=== PATIENT | female | born 1940 | race Caucasian/White ===

== ENCOUNTER 2023-05-21 18:41 | Observation (INO) | payer OTHER, SELFPAY ==
[2023-05-21] VITALS (7 sets, daily range): BP systolic 136–161; BP diastolic 67–88; PULSE 61–68; BMI 38.3; BMI 37.0
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
[2023-05-21 14:57] LABS: % Basophils 0.5 % (0-2); % Eosinophils 2.6 % (0-6); % Immature Granulocytes 0.4 % (0-0.5); % Lymphocytes 16.3 % (20.5-51.1); % Monocytes 5.4 % (1.7-9.3); % Neutrophils 74.8 % (42.2-75.2); Absolute Eosinophils 0.2 10^3/uL (0-0.7); Absolute Lymphocytes 1.3 10^3/uL (1.2-3.4); Absolute Monocytes 0.4 10^3/uL (0.1-0.6); Absolute Neutrophils 5.8 10^3/uL (1.4-6.5); Hematocrit 37.8 % (37.0-47.0); Hemoglobin 12.7 g/dL (12.0-16.0); Mean Corp Hgb Conc. 33.6 g/dL (33.0-37.0); Mean Corpuscular Hgb 28.7 pg (27.0-31.0); Mean Corpuscular Volume 85.3 fL (81.0-99.0); Mean Platelet Volume 9.3 fL (7.4-10.4); Nucleated Red Blood Cells % 0 %; Platelet Count 258 10^3/uL (130-400); Red Blood Cell Count 4.43 10^6/uL (4.20-5.40); Red Cell Dist. Width 13.6 % (11.5-14.5); White Blood Cell Count 7.7 10^3/uL (4.8-10.8)
[2023-05-21] MEDS: NSS 1000 IV (16:09)
[2023-05-21 16:10] LABS: ALT (SGPT) 21 U/L (0-35); AST (SGOT) 21 U/L (14-36); Albumin 4.3 g/dl (3.5-5.0); Alkaline Phosphatase 99 U/L (38-126); Blood Urea Nitrogen 15 mg/dl (7-17); Calcium 9.5 mg/dl (8.4-10.2); Carbon Dioxide 28 mmol/L (22-30); Chloride 102 mmol/L (98-107); Estimated Creatinine Clearance 70 ml/min; Glucose 109 mg/dl (70-99); Potassium 4.4 mmol/L (3.5-5.1); Sodium 139 mmol/L (135-145); Total Bilirubin 0.5 mg/dl (0.2-1.3); Total Protein 7.1 g/dl (6.3-8.2); eGFR > 60.00
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
[2023-05-21 18:40] LABS: COVID-19 Antigen Negative (Negative)
[2023-05-21] MEDS: ZOVIRAX 200 MG PO (22:26)
[2023-05-21] MEDS: LAMICTAL 300 MG PO (22:26)
[2023-05-21] MEDS: NEURONTIN 100 MG PO (22:28)
--- NOTE | 2023-05-21 22:30 | PTCARENOTE ---
Received patient from ED via stretcher. Patient stood and pivoted from stretcher to bed with assistance. AAOx3, no current complaints of pain. Oriented patient to room and placed call meléndez within reach.
[2023-05-22] VITALS (9 sets, daily range): BP systolic 130–184; BP diastolic 67–108; PULSE 72–87; O2SAT 94
[2023-05-22 07:31] LABS: % Basophils 0.4 % (0-2); % Eosinophils 4.9 % (0-6); % Immature Granulocytes 0.4 % (0-0.5); % Lymphocytes 23.6 % (20.5-51.1); % Monocytes 6.2 % (1.7-9.3); % Neutrophils 64.5 % (42.2-75.2); Absolute Eosinophils 0.4 10^3/uL (0-0.7); Absolute Lymphocytes 1.9 10^3/uL (1.2-3.4); Absolute Monocytes 0.5 10^3/uL (0.1-0.6); Absolute Neutrophils 5.1 10^3/uL (1.4-6.5); Hematocrit 39.1 % (37.0-47.0); Hemoglobin 13.2 g/dL (12.0-16.0); Mean Corp Hgb Conc. 33.8 g/dL (33.0-37.0); Mean Corpuscular Hgb 28.6 pg (27.0-31.0); Mean Corpuscular Volume 84.6 fL (81.0-99.0); Mean Platelet Volume 9.5 fL (7.4-10.4); Nucleated Red Blood Cells % 0 %; Platelet Count 241 10^3/uL (130-400); Red Blood Cell Count 4.62 10^6/uL (4.20-5.40); Red Cell Dist. Width 13.6 % (11.5-14.5); White Blood Cell Count 7.9 10^3/uL (4.8-10.8)
[2023-05-22 07:43] LABS: Blood Urea Nitrogen 12 mg/dl (7-17); Calcium 9.4 mg/dl (8.4-10.2); Carbon Dioxide 28 mmol/L (22-30); Chloride 107 mmol/L (98-107); Estimated Creatinine Clearance 81 ml/min; Glucose 94 mg/dl (70-99); Potassium 3.9 mmol/L (3.5-5.1); Sodium 140 mmol/L (135-145); eGFR > 60.00
[2023-05-22] MEDS: ZOVIRAX 200 MG PO ×2 (09:07→20:38)
[2023-05-22] MEDS: NEURONTIN 100 MG PO (09:08)
[2023-05-22] MEDS: TOPROL XL 50 MG PO (09:08)
[2023-05-22] MEDS: ABILIFY 10 MG PO (09:08)
[2023-05-22] MEDS: CELEBREX 100 MG PO (09:08)
[2023-05-22] MEDS: LAMICTAL 300 MG PO ×2 (09:08→20:38)
[2023-05-22] MEDS: PROTONIX 40 MG PO (09:08)
[2023-05-22] MEDS: THERAGRAN 1 TABLET PO (09:09)
[2023-05-22] MEDS: CYMBALTA DELAYED RELEASE 90 MG PO (09:09)
[2023-05-22] MEDS: CARDIZEM CD 240 MG PO (09:09)
[2023-05-22] MEDS: FLUSH (NSS) 1 FLUSH IV (09:09)
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
--- NOTE | 2023-05-22 15:09 | CM ---
Alert awake oriented patient who lives alone at [facility]. She is independent in all activities of daily living.She has ascooter rollator walker and CPAP with [facility]. Will need PT OT eval for dc plan.MARIN letter given explained
. Copy on chart and copy given to patient . she declined to sign [place].
No SNF/Has VN hx
Pharmacy [facility]
PCP Dr Alexander
PLAN will need PT OT for dc planning
[2023-05-22 18:20] LABS: Ferritin 26.5 ng/ml (11.1-264.0)
[2023-05-22 18:51] LABS: Folate > 20.0 ng/ml (2.76-20); Vitamin B12 560 pg/ml (239-931)
--- NOTE | 2023-05-22 22:22 | EEG.RPT ---
Electroencephalogram Report
Recording
Date of EE05/22/23
Type of EEG: Routine
Length of EEG recordin mins
Done with Video Recording: Yes
Patient Status: Inpatient
Recording Conditions: Awake and Drowsy
Hyperventilation Performed: No
Photic Stimulation Performed: Yes
Report
METHODS
A 21 channel digitized electroencephalogram was performed at [facility]. The 10/20 international system of electrode placement was used. In addition to EEG, the patient was monitored for EKG. The duration of the recording was 30 minutes.
BACKGROUND
During the awake state, with the eyes closed, the background consisted of a normal amplitude, 9 Hertz posterior reactive rhythm that attenuated appropriately with eye opening. Beta activity was distributed diffusely with an anterior predominance.
There was a normal anterior-posterior voltage gradient. With eye opening the background activity changed to a low voltage mixture of alpha, beta, and occasional theta range frequencies. There were no significant asymmetries of background activity
noted.
PHOTIC STIMULATION
Photic stimulation using a step-davenport increase in photic frequency varying from 1-31 Hertz resulted in no driving responses but no appearance of abnormal activity.
ABNORMAL EEG ACTIVITY
None
CLINICAL EVENTS
None
INTERPRETATION AND CLINICAL CORRELATION
This EEG is normal during the awake and drowsy states as well as during the activation procedure of photic stimulation. No seizures were noted during the recording. A normal EEG, in itself, does not rule out a diagnosis of epilepsy. If clinical
suspicion for seizure persists, a sleep-deprived and/or prolonged recording may be warranted.
[2023-05-23] VITALS (7 sets, daily range): BP systolic 128–190; BP diastolic 72–115; PULSE 95–96
[2023-05-23 07:01] LABS: Cortisol, Random 8.3 ug/dl; TSH Reflex To Free T4 1.92 uIU/ml (0.47-4.68)
[2023-05-23] MEDS: CARDIZEM CD 240 MG PO (08:50)
[2023-05-23] MEDS: PROTONIX 40 MG PO (08:53)
[2023-05-23] MEDS: LAMICTAL 300 MG PO ×2 (08:53→20:27)
[2023-05-23] MEDS: TOPROL XL 50 MG PO (08:54)
[2023-05-23] MEDS: CYMBALTA DELAYED RELEASE 90 MG PO (08:54)
[2023-05-23] MEDS: ABILIFY 10 MG PO (08:54)
[2023-05-23] MEDS: CELEBREX 100 MG PO (08:55)
[2023-05-23] MEDS: ZOVIRAX 200 MG PO ×2 (08:57→20:27)
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
--- NOTE | 2023-05-23 13:33 | W.DCSUMMARY ---
Discharge Summary
Discharge Data
Date of Admission: 05/21/23
Date of Discharge: 05/24/23
-
Pending Results: No
Hospital Course
83-year-old female with past history of memory impairment, chronic falls, seizure disorder, traumatic brain injury, normal pressure hydrocephalus, hypertension, bipolar disorder, hyperlipidemia, GERD, osteoarthritis, ADD, DAKOTA, vertigo, IBS,
recurrent herpes came to the hospital with ambulatory dysfunction with unwitnessed fall. Initially there was a concern of patient unintentionally overdosing her medication due to her poor vision however after evaluation patient did not overdose.
Patient was seen by neurology throughout hospitalization. EEG was negative for any seizure. Patient was initially orthostatic however later on orthostasis improved. Patient was started on teds. TSH and cortisol was normal. Patient was evaluated
by physical therapy who recommended SNF however patient continued to refuse assisted facility placement. Initial CT scan was also concerning for chronic subdural hematoma versus hygroma. Neurosurgery was consulted by ED who recommended no
further management. Patient mental status over time continue to improve and she was back to her baseline mental status prior to the discharge. Her Lamictal level which was checked by neurology came little high and so neurology recommended patient
to hold 1 dose of Lamictal prior to discharge. On discharge patient instructed to continue taking usual Lamictal and to check her Lamictal level outpatient next week. Once her symptoms improved, she was then discharged with instructions to
follow-up with all her physicians outpatient.
Discharge Plan
-
Patient Disposition: Home with Home Care
Discharge Diagnosis/Procedures: Orthostatic hypotension
Ambulatory dysfunction
Elevated Lamictal level
Diet: As tolerated
Activity: As tolerated
Driving Restrictions: Not until seen by your Dr
Bathing Restrictions: None
Blood Work: Check lamictal level next week with your primary care or neurology
Activity Restrictions/Additional Instructions:
Please follow-up with neurology outpatient
Referrals:
Malika Alexander MD [Family Provider] - in less than 1 week
Scatton,Vicki P., DO [Active] -
Additional Discharge Medication Instructions: restart lamictal at usual dosing starting 05/24/23 evening dose
Prescriptions:
Continued
lamotrigine 150 MG tablet
300 mg PO BID
diltiazem HCl 240 MG capsule,extended release 24hr
240 mg PO DAILY
omeprazole 20 MG capsule,delayed release(DR/EC)
20 mg PO DAILY
acyclovir 200 MG capsule
200 mg PO BID
aripiprazole 10 MG tablet
10 mg PO DAILY
duloxetine 30 MG capsule,delayed release(DR/EC)
90 mg PO DAILY
multivitamin Tablet
1 tab PO DAILY
metoprolol succinate 50 mg tablet extended release 24 hr
50 mg PO DAILY
meclizine 12.5 mg Tablet
12.5 mg PO Q8H PRN (Reason: dizziness)
celecoxib 100 mg capsule
100 mg PO DAILY
dextroamphetamine-amphetamine 15 mg capsule,extended release 24hr
30 mg PO DAILY
Patient Comments:
05/21/2023: last filled 05/03/23, 60 tabs for 30 days from [facility]
inulin 1.5 gram Tablet,Chewable
3 g PO DAILY
Hair, Skin and Nails (biotin)
2 tab PO DAILY
sennosides [senna] 8.6 MG tablet
8.6 mg PO DAILY PRN (Reason: constipation)
Discontinued
gabapentin 100 mg capsule
100 mg PO TID
Discharge Orders:
Discharge Patient (As Directed); Ordered 05/23/23
Ordered By: Shan Jane
Discharge Date and Time
Discharge Date/Time: 05/24/23 11:31
--- NOTE | 2023-05-23 15:47 | CM ---
CM following re: d/c planning
Chart reviewed
Pt is medically stable for d/c and will return to her [place] apartment at [facility]
PT/OT continue to recommend SNF and the patient has adamantly refused
Patient's son is in agreement for the patient to return to her apartment with VN
This senior grant writer left a voice mail message for the patient's son to inform of patient d/c and asked what time he'd be coming to the hospital to transport mom home
Awaiting a return call at this time
CM has arranged for VN through [facility] and they requested clinicals be faxed to [phone]
No additional d/c needs noted at this time
PLAN; d/c home with [facility]N
--- NOTE | 2023-05-23 17:04 | CM ---
CM following re: d/c planning
Chart reviewed
Pt is medically stable for d/c
Pt discharge held due to inability to coordinate a reasonable transport time
CM spoke with the patient's son Hilton who spoke to the patient earlier to inform he'd be unable to p/u his mom because he's out of town his other brother is also 2 plus hours away
Hilton informed his mother to call one of her friends to transport her home from the community & she refused
Pt is set up with [facility] as she's adamantly refusing SNF placement
CM to arrange w/c van transport in the a.m.
PLAN; d/c home with VN provided by [facility]
--- NOTE | 2023-05-23 17:21 | PTCARENOTE ---
Received patient this am AAOx3. Pt forgetful intermittently. Pt refused Pneumococcal Vaccine, pt states she has already had vaccine. Pt OOB to chair tolerated well. Tolerated diet well. Pt for discharge today. Transportation to home was not able
to be coordinated at a reasonable time via [facility]. Pt's son's both out of town an are unable to pick pt up. Case management made Dr. Jane aware.
[2023-05-24 02:41] LABS: Lamotrigine (Lamictal) 16.4 ug/mL (3.0-15.0)
--- NOTE | 2023-05-24 02:52 | PTCARENOTE ---
Lamictal level back 16.4. House ENRICHMENT ASSISTANT aware.
--- NOTE | 2023-05-24 03:10 | W.PN.UPDATE ---
Update Note
Progress Note Update
Lamictal 16.4, placed Lamictal doses on hold.
[2023-05-24 03:36] VITALS: BP 154/82
[2023-05-24 05:14] VITALS: BP 142/92; BP 143/73; BP 149/93; PULSE 72; PULSE 88; PULSE 91
--- NOTE | 2023-05-24 07:55 | W.PN.NEURO.1 ---
Today's Communication / Plan
-
hold lamotrigine x 1 dose
lamotrigine levels repeated in 1 week
Neuro Assessment/Plan
Assessment
Abrupt onset of worsening gait in a patient with prior ventriculoperitoneal shunt, reported seizures, subdural hematoma and accidental polypharmacy self-reported by the patient yesterday
Continue to follow orthostatics
hold lamotrigine x 1 dose
lamotrigine levels repeated in 1 week
Discontinued gabapentin due to the risk of the patient experiencing a sense of dizziness and unsteadiness with the use of this medication routinely alternative medication may be pregabalin
No indication patient will require neurosurgical intervention
Rehabilitation evaluations
Likely patient will require additional oversight of medication administration
Plan
hold lamotrigine x 1 dose
lamotrigine levels repeated in 1 week
Subjective/Objective
Subjective Data
Date of Service: May 24, 2023
Objective Data
Vital Signs
Temp Pulse Resp BP Pulse Ox
36.7 C 72 18 154/82 95
05/24/23 03:36 05/24/23 03:36 05/24/23 03:36 05/24/23 03:36 05/24/23 03:36
Lab Results
05/22/23 06:59
05/22/23 06:59
Sodium 140 mmol/L (135-145) 05/22/23 06:59
Potassium 3.9 mmol/L (3.5-5.1) 05/22/23 06:59
BUN 12 mg/dl (7-17) 05/22/23 06:59
Glucose 94 mg/dl (70-99) 05/22/23 06:59
Calcium 9.4 mg/dl (8.4-10.2) 05/22/23 06:59
Vitamin B12 560 pg/ml (239-931) 05/22/23 06:59
Patient Allergies
No Known Allergies Allergy (Verified 04/09/22 10:10)
Past History
Past History
ED Past Medical History: Cancer, HTN, Seizures, Psychiatric and Other (SDH)
ED Past Surgical History: Appendectomy, Brain (VPS shunt), Gynecological, Orthopedic and Urological
Social History
Tobacco: Smoker
Alcohol: None
Drug: None
Living: with family
Employment: Retired
Family History
Family History: Hypertension
Medications
-
Medications:
Generic Name Dose Route Start Last Admin
Trade Name Freq PRN Reason Stop Dose Admin
Acetaminophen 650 mg 05/21/23 21:31
Acetaminophen 325 Mg Tablet PO 06/18/23 21:30
Q4HPRN PRN
mild pain/MUHAMMAD/temp> 100.4F
Acyclovir Sodium 200 mg 05/21/23 21:31 05/23/23 20:27
Acyclovir Sodium 200 Mg Capsule PO 05/31/23 21:30 200 mg
BID SIRI Administration
Aripiprazole 10 mg 05/22/23 08:00 05/23/23 08:54
Aripiprazole 10 Mg Tablet PO 06/19/23 07:59 10 mg
DAILY SIRI Administration
Celecoxib 100 mg 05/22/23 08:00 05/23/23 08:55
Celecoxib 100 Mg Capsule PO 06/19/23 07:59 100 mg
DAILY SIRI Administration
Diltiazem HCl 240 mg 05/22/23 08:00 05/23/23 08:50
Diltiazem 240 Mg Extended Release (24 H) Capsule PO 06/19/23 07:59 240 mg
DAILY SIRI Administration
Duloxetine HCl 90 mg 05/22/23 08:00 05/23/23 08:54
Duloxetine Delayed Release 30 Mg Capsule PO 06/19/23 07:59 90 mg
DAILY SIRI Administration
Lamotrigine 300 mg 05/21/23 22:00 05/23/23 20:27
Lamotrigine 100 Mg Tablet PO 06/18/23 21:59 300 mg
BID SIRI Administration
Meclizine HCl 12.5 mg 05/21/23 21:31
Meclizine 12.5 Mg Tablet PO 06/18/23 21:30
Q8HPRN PRN
dizziness
Metoprolol Succinate 50 mg 05/22/23 08:00 05/23/23 08:54
Metoprolol 50 Mg Extended Release Tablet PO 06/19/23 07:59 50 mg
DAILY SIRI Administration
Dextro/Amphetamine 0 mg 05/22/23 08:00
30 Mg Capsule Er Po PO 06/19/23 07:59
Daily DAILY SIRI
Pantoprazole Sodium 40 mg 05/22/23 08:00 05/23/23 08:53
Pantoprazole 40 Mg Delayed Release Tablet PO 06/19/23 07:59 40 mg
DAILY SIRI Administration
Sennosides 8.6 mg 05/21/23 21:31
Sennosides (Senokot) 8.6 Mg Tablet PO 06/18/23 21:30
DAILYPRN PRN
constipation
Sodium Chloride 0 flush 05/21/23 22:00 05/22/23 09:09
Sodium Chloride 0.9% (Flush) Syringe IV 06/18/23 21:59 1 flush
PER PROTOCOL SIRI Administration
[2023-05-24 08:00] VITALS: BP 145/89
[2023-05-24] MEDS: CARDIZEM CD 240 MG PO (09:58)
[2023-05-24] MEDS: CYMBALTA DELAYED RELEASE 90 MG PO (09:58)
[2023-05-24] MEDS: ABILIFY 10 MG PO (09:59)
[2023-05-24] MEDS: PROTONIX 40 MG PO (09:59)
[2023-05-24] MEDS: CELEBREX 100 MG PO (09:59)
[2023-05-24] MEDS: ZOVIRAX 200 MG PO (09:59)
[2023-05-24] MEDS: TOPROL XL 50 MG PO (10:00)
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
[2023-05-24 11:04] VITALS: BP 151/83
--- NOTE | 2023-05-24 17:48 | CM ---
patient refusiing snf.ready for dc home totab.i called transport at [facility] and they are able to pick her up at 11:15pm.explained medicare letter nbut patient refuses to sign.michelle mcgee dc yo [facility] with [facility].
== END 2023-05-24 11:31 | disposition home health service (06) ==
LOC: 4 EAST ACU 18:41
PROVIDERS: Clinical Nurse Specialist Family Health; ADMITTING PHYSICIAN Internal Medicine; EMERGENCY PHYSICIAN Emergency Medicine; FAMILY PHYSICIAN Internal Medicine Geriatric Medicine; OTHER PHYSICIAN Psychiatry & Neurology Neurology
DX: R41.3 Other amnesia (principal); R42 Dizziness and giddiness; R47.81 Slurred speech; E78.5 Hyperlipidemia, unspecified; I10 Essential (primary) hypertension; W19.XXXA Unspecified fall, initial encounter; Y93.9 Activity, unspecified; Y92.099 Unspecified place in other non-institutional residence as the place of occurrence of the external cause; K21.9 Gastro-esophageal reflux disease without esophagitis; G93.89 Other specified disorders of brain; R41.0 Disorientation, unspecified; G40.909 Epilepsy, unspecified, not intractable, without status epilepticus; G91.2 (Idiopathic) normal pressure hydrocephalus; F31.9 Bipolar disorder, unspecified; F41.9 Anxiety disorder, unspecified; G47.33 Obstructive sleep apnea (adult) (pediatric); F17.200 Nicotine dependence, unspecified, uncomplicated; R29.6 Repeated falls; M19.011 Primary osteoarthritis, right shoulder; G89.29 Other chronic pain; M75.41 Impingement syndrome of right shoulder; R01.1 Cardiac murmur, unspecified; K58.9 Irritable bowel syndrome, unspecified; I44.0 Atrioventricular block, first degree; B00.9 Herpesviral infection, unspecified; H53.461 Homonymous bilateral field defects, right side; E66.09 Other obesity due to excess calories; Z91.199 Patient's noncompliance with other medical treatment and regimen due to unspecified reason; Z87.820 Personal history of traumatic brain injury; Z82.49 Family history of ischemic heart disease and other diseases of the circulatory system; Z90.49 Acquired absence of other specified parts of digestive tract; Z98.2 Presence of cerebrospinal fluid drainage device; Z11.52 Encounter for screening for COVID-19; Z80.3 Family history of malignant neoplasm of breast; Z79.624 Long term (current) use of inhibitors of nucleotide synthesis; Z79.1 Long term (current) use of non-steroidal anti-inflammatories (NSAID); Z68.37 Body mass index [BMI] 37.0-37.9, adult; Z66 Do not resuscitate
CPT/HCPCS: 70450; 80048; 80053; 80175; 82533; 82607; 82728; 82746; 84443; 85025; 87070; 87811; 93005; 94660; 95816; 96360; 97162; 97167; 97530; 99285; G0378

== ENCOUNTER 2023-10-21 10:05 | Emergency (ER) | payer OTHER, SELFPAY ==
[2023-10-21 10:23] VITALS: BP 138/73
--- NOTE | 2023-10-21 11:31 | ED.GENMED ---
History of Present Illness
<Carlota Mao MD, Resident - Last Filed: 10/21/23 13:43>
General
Chief Complaint: Musculo-Skeletal Complaint
Time Seen by Provider: 10/21/23 10:31
History of Present Illness
History of Present Illness:
83 year ol female presented to ER with right knee, ankle and foot pain. She reported that she sprained her ankle yesterday and hit her knee to ottoman. She denied having head trauma at that time. She reported minimal pain on her left knee. On
examination her right ankle and foot was found swollen. Her foot was erythematous. The patient reports balance chronic balance problems and denies any increasing with it. The patient was seen in May 2023 due her gait problems by neurology.
Past History
ED Past Medical History: Cancer, HTN, Seizures, Psychiatric and Other (SDH)
ED Past Surgical History: Appendectomy, Brain (VPS shunt), Gynecological, Orthopedic and Urological
Social History
Tobacco: Smoker
Alcohol: None
Drug: None
Living: with family
Employment: Retired
Family History
Family History: Hypertension
If applicable-neuro sx onset
Date of onset of symptoms: 10/21/23
Past History
<Carlota Mao MD, Resident - Last Filed: 10/21/23 13:43>
Past History
ED Past Medical History: Cancer, HTN, Seizures, Psychiatric and Other (SDH)
ED Past Surgical History: Appendectomy, Brain (VPS shunt), Gynecological, Orthopedic and Urological
Social History
Tobacco: Smoker
Alcohol: None
Drug: None
Living: with family
Employment: Retired
Family History
Family History: Hypertension
Phy Exam
<Carlota Mao MD, Resident - Last Filed: 10/21/23 13:43>
General Physical Exam
General Presentation: no apparent distress
General age: appears stated age
General Skin: warm
General Mental: alert
General Hydration: appears well hydrated
Pulmonary Exam
Pulmonary Exam: no respiratory distress
Neurological Exam
Neurological Exam: alert, oriented x3 and no motor deficits
Musculoskeletal Exam
Musculoskeletal Exam: other (edema on he right ankle and foot. Dorsalis pedis was palpable. ROM of right ankle was limited due pain. )
Course
<Carlota Mao MD, Resident - Last Filed: 10/21/23 13:43>
Orders/Labs/Results
Orders:
Orders
10/21/23 10:27
Ankle, Right 3 view CR [CR Ankle - Right Min 3 Views *] Urgent
Comment:
Reason For Exam: fall, pain
Knee, Left 4 or More Views [CR Knee - Left 4 Or More View*] Urgent
Comment:
Reason For Exam: fall, pain
10/21/23 11:44
Ketorolac [Toradol] 15 mg .ROUTE .STK-MED ONE
10/21/23 12:01
boot [Ortho Boot Right- Treatment] ONCE
Short or tall?: Short
10/21/23 12:19
Case Management Consult ONCE
Case Management Consult: Discharge Planning
10/21/23 12:20
Ketorolac [Toradol] 15 mg IM NOW STA
Vital Signs
Initial and Last Documented VS:
Initial Vital Signs
Temp Pulse Resp BP Pulse Ox
99 F 77 18 138/73 93
10/21/23 10:23 10/21/23 10:23 10/21/23 10:23 10/21/23 10:23 10/21/23 10:23
Last Documented Vital Signs
Temp Pulse Resp BP Pulse Ox
99 F 72 18 138/73 96
10/21/23 10:23 10/21/23 12:00 10/21/23 12:00 10/21/23 10:23 10/21/23 12:00
<Ana Cowan DO - Last Filed: 10/21/23 12:50>
Orders/Labs/Results
Orders:
Orders
10/21/23 10:27
Ankle, Right 3 view CR [CR Ankle - Right Min 3 Views *] Urgent
Comment:
Reason For Exam: fall, pain
Knee, Left 4 or More Views [CR Knee - Left 4 Or More View*] Urgent
Comment:
Reason For Exam: fall, pain
10/21/23 11:44
Ketorolac [Toradol] 15 mg .ROUTE .STK-MED ONE
10/21/23 12:01
boot [Ortho Boot Right- Treatment] ONCE
Short or tall?: Short
10/21/23 12:19
Case Management Consult ONCE
Case Management Consult: Discharge Planning
10/21/23 12:20
Ketorolac [Toradol] 15 mg IM NOW STA
Vital Signs
Initial and Last Documented VS:
Initial Vital Signs
Temp Pulse Resp BP Pulse Ox
99 F 77 18 138/73 93
10/21/23 10:23 10/21/23 10:23 10/21/23 10:23 10/21/23 10:23 10/21/23 10:23
Last Documented Vital Signs
Temp Pulse Resp BP Pulse Ox
99 F 72 18 138/73 96
10/21/23 10:23 10/21/23 12:00 10/21/23 12:00 10/21/23 10:23 10/21/23 12:00
<Carlota Mao MD, Resident - Last Filed: 10/21/23 13:43>
*Critical Care Note
Total Time (30-74mins, 75-104mins- exclusive of procedures): Not Applicable
<Carlota Mao MD, Resident - Last Filed: 10/21/23 13:43>
Comment
Comment:
Musculoskeletal injury, right foot/ankle trauma? X-rays of the right knee and ankle and foot reviewed no fracture /acute problem. The patient was applied ice on the affected area ans was prescribed a right foot boot to improve her ankle
stability/pain.
ED Attending Note
<Carlota Moa MD, Resident - Last Filed: 10/21/23 13:43>
-
Portions of this chart may have been created with voice recognition software.� Occasional wrong word or��sound alike� substitutions may have occurred due to the inherent limitations of voice recognition software.
<Ana Cowan DO - Last Filed: 10/21/23 12:50>
ED Attending Note
Patient seen and examined by attending physician: Yes
I performed the substantive portion of visit, reviewed & personally made and approve the management plan that is documented in note by myself or CITLALY.: Yes
I performed a history and physical exam of patient and discussed management with resident, I reviewed resident's note and agree with documented findings and plan of care.: Yes
ED Attending Note:
83-year-old female presenting to the emergency department with right ankle and left knee pain. Patient arrives from her facility, notes she has chronic balance issues and she struck her left knee and twisted her right ankle on an ottoman yesterday.
She has since had difficulty bearing weight secondary to pain. Denies numbness or tingling to the extremities. Denies fall or head injury. Denies additional acute medical complaints. Vital signs within normal limits.
On exam, patient well-appearing, no acute distress. Patient with swelling to the right ankle at the lateral malleoli with generalized tenderness to the ankle joint. Range of motion grossly intact. No erythema or warmth. Distal sensation and
pulses intact. On examination of the left knee, no obvious swelling or deformity. Range of motion intact. No erythema or warmth. No neurovascular compromise to the extremities. No acute signs of infection. Suspect a musculoskeletal injury.
Plan for x-ray imaging.
12:30 - Patient's x-ray of the ankle without acute fracture or malalignment. No abnormality to the left knee. Patient placed in a boot. Will consult with case management for referral for physical therapy. Otherwise feel stable for discharge with
continued outpatient supportive therapy.
Discharge Plan
Departure
Patient Disposition: [facility]
Date of Disposition: 10/21/23
Time of Disposition: 13:05
Discharge Problem:
musculosceletal injury
Prescriptions:
New
celecoxib 100 mg capsule
100 mg PO ONCE Qty: 14 0RF
No Action
lamotrigine 150 MG tablet
300 mg PO BID
diltiazem HCl 240 MG capsule,extended release 24hr
240 mg PO DAILY
omeprazole 20 MG capsule,delayed release(DR/EC)
20 mg PO DAILY
acyclovir 200 MG capsule
200 mg PO BID
aripiprazole 10 MG tablet
10 mg PO DAILY
duloxetine 30 MG capsule,delayed release(DR/EC)
90 mg PO DAILY
multivitamin Tablet
1 tab PO DAILY
metoprolol succinate 50 mg tablet extended release 24 hr
50 mg PO DAILY
meclizine 12.5 mg Tablet
12.5 mg PO Q8H PRN (Reason: dizziness)
celecoxib 100 mg capsule
100 mg PO DAILY
dextroamphetamine-amphetamine 15 mg capsule,extended release 24hr
30 mg PO DAILY
Patient Comments:
05/21/2023: last filled 05/03/23, 60 tabs for 30 days from [facility]
inulin 1.5 gram Tablet,Chewable
3 g PO DAILY
Hair, Skin and Nails (biotin)
2 tab PO DAILY
sennosides [senna] 8.6 MG tablet
8.6 mg PO DAILY PRN (Reason: constipation)
Referrals:
Malika Alexander MD [Family Provider] -
Activity Restrictions/Additional Instructions:
You were seen in the emergency department for right knee and ankle injury
You are suspected to muscular an ligamental injury. X rays did not review any fracture. Your prescription for celecoxib was refilled. Please follow up closely with your primary care physician. Please apply ice pack every 3-4 hours for 10-15 minutes
on swollen areas.
Return to the emergency department for any worsening symptoms or any development of chest pain, difficulty breathing, abdominal pain, numbness on your extremities, fever over 100.4 or any additional symptoms that are concerning to you.
Thanks you for choosing [facility]
Interventions
Interventions:
*Risk Screen - Suicide Last Done: 10/21/23 10:27
*General Assessment Last Done: 10/21/23 10:23
*Neglect/Abuse Screening Last Done: 10/21/23 10:23
ED- Fall Risk Assessment Last Done: 10/21/23 13:32
*ED COVID-19 Vaccine History Last Done: 10/21/23 13:32
*Nursing Disposition Last Done: 10/21/23 13:32
ED-Musculoskeletal Assessment Last Done: 10/21/23 11:06
Discharge Date and Time
Discharge Date/Time: 10/21/23 13:33
Print Language: INDONESIAN
[2023-10-21] MEDS: TORADOL 15 MG IM (12:25)
--- NOTE | 2023-10-21 15:37 | CM ---
Patient from [facility] with Dx right knee and ankle injury.
Per Carlota Mao notes: The patient was applied ice on the affected area and was prescribed a right foot boot to improve her ankle stability/pain.
Notified by ED nurse Renate that patient was already discharged to home today with script from [facility] for PT, and she transported home via [facility].
Spoke with patient who resides alone in an apartment at [facility].
The patient has been independent in ADLs and ambulation without using any assistive devices.
She states she tripped and fell over her ottoman at home, and denies any other falls this year.
DME - states she only has a RW
CM notes 05/22/23: She has a scooter rollator walker and CPAP with [employer].
VN - prior [facility]
SNF - none
PCP - Malika Alexander
Pharmacy - [facility]
Patient declined to allow CM to contact her son Hilton.
Patient agrees to [facility] for SN & PT and is aware CM will notify [facility] for her. She states she wants PT to improve her balance.
Spoke with [facility] (ph [phone]); they are able to accept the referral.
Plan home today with [facility].
== END 2023-10-21 13:33 ==
LOC: EMR 10:05
PROVIDERS: EMERGENCY PHYSICIAN Student in an Organized Health Care Education/Training Program; FAMILY PHYSICIAN Internal Medicine Geriatric Medicine
DX: M25.562 Pain in left knee (principal); S93.401A Sprain of unspecified ligament of right ankle, initial encounter; M25.571 Pain in right ankle and joints of right foot; M25.471 Effusion, right ankle; W18.09XA Striking against other object with subsequent fall, initial encounter; I10 Essential (primary) hypertension; R56.9 Unspecified convulsions; R26.89 Other abnormalities of gait and mobility; F17.200 Nicotine dependence, unspecified, uncomplicated; Z98.2 Presence of cerebrospinal fluid drainage device; Z85.9 Personal history of malignant neoplasm, unspecified
CPT/HCPCS: 99283; 29515; 73564; 73610

== ENCOUNTER 2024-02-10 20:35 | Emergency (ER) | payer OTHER, SELFPAY ==
[2024-02-10 20:36] VITALS: BP 136/83
--- NOTE | 2024-02-10 20:36 | ED.GENMED ---
ED Provider Triage
<Abbe Kimble PA-C - Last Filed: 02/10/24 20:38>
-
Patient seen by provider in Triage?: Seen in Triage
Attestation: A medical screening examination has been initiated by a qualified medical provider. Based on the assessment performed at this time, it has been determined that an emergent medical condition may exist and the patient has been informed
that further medical evaluation and possible additional diagnostic testing may be needed.
HPI: 83-year-old female presenting to the ER for evaluation of nausea vomiting and diarrhea for the last few days. No recent travel or recent antibiotics. Attempted Imodium with no relief. Denies any fevers. Hemodynamically stable in no acute
distress. Labs ordered.
GENERAL: Alert , in no apparent distress
EYE: No visual abnormalities.
NECK: Trachea midline
ENT: No visible abnormalities.
LUNGS: No acute respiratory distress
NEUROLOGICAL: Alert and oriented
SKIN: Skin intact. No visible changes.
MUSCULOSKELETAL: Moving extremities normally
PSYCH: Normal and appropriate interaction.
This is a medical evaluation conducted in person to initiate diagnostic evaluation and provide initial therapeutics. Please see further documentation by the treating clinician.
History of Present Illness
<Abbe Kimble PA-C - Last Filed: 02/10/24 20:38>
General
Chief Complaint: Abdominal Pain
Time Seen by Provider: 02/10/24 23:16
<Ben Schaefer DO - Last Filed: 02/11/24 02:39>
General
Source: patient
Exam Limitations: none
History of Present Illness
History of Present Illness:
See MDM
Past History
<Abbe Kimble PA-C - Last Filed: 02/10/24 20:38>
Past History
ED Past Medical History: Cancer, HTN, Seizures, Psychiatric and Other (SDH)
ED Past Surgical History: Appendectomy, Brain (VPS shunt), Gynecological, Orthopedic and Urological
Social History
Tobacco: Smoker
Alcohol: None
Drug: None
Living: with family
Employment: Retired
Family History
Family History: Hypertension
Phy Exam
<Ben Schaefer DO - Last Filed: 02/11/24 02:39>
Physical Exam
Physical Exam:
See MDM
Course
<Abbe Kimble PA-C - Last Filed: 02/10/24 20:38>
Orders/Labs/Results
Orders:
Orders
02/10/24 20:44
Complete Blood Count/With Diff Urgent
Comprehensive Metabolic Panel Urgent
Lipase Urgent
02/10/24 23:20
0.9% Sodium Chloride 1000 ml [Nss] 1,000 ml IV BOLUS
02/10/24 23:22
Electrocardiogram (*1) Urgent
Reason for Study: Abdominal Pain
EKG- Treatment ONCE
02/11/24 00:15
CT Abd/pelvis W Iv Cont Urgent
Reason For Exam: N/V/D and abd pain
02/11/24 02:30
Amoxicillin 875 mg/Clav 125 mg [Augmentin 875 mg/125 mg] 1 tablet PO NOW STA
Abnormal Lab Results
02/10/24
20:44
Carbon Dioxide 21 L mmol/L
(22-30)
BUN 28 H mg/dl
(7-17)
Creatinine 1.1 H mg/dL
(0.6-1.0)
Glucose 107 H mg/dl
(70-99)
02/10/24 20:44
02/10/24 20:44
Vital Signs
Initial and Last Documented VS:
Initial Vital Signs
Temp Pulse Resp BP Pulse Ox
98.2 F 102 20 136/83 97
02/10/24 20:36 02/10/24 20:36 02/10/24 20:36 02/10/24 20:36 02/10/24 20:36
Last Documented Vital Signs
Temp Pulse Resp BP Pulse Ox
98.2 F 93 34 140/71 100
02/10/24 20:36 02/11/24 02:27 02/11/24 02:27 02/11/24 02:00 02/11/24 01:45
<Ben Schaefer, DO - Last Filed: 02/11/24 02:39>
Orders/Labs/Results
Orders:
Orders
02/10/24 20:44
Complete Blood Count/With Diff Urgent
Comprehensive Metabolic Panel Urgent
Lipase Urgent
02/10/24 23:20
0.9% Sodium Chloride 1000 ml [Nss] 1,000 ml IV BOLUS
02/10/24 23:22
Electrocardiogram (*1) Urgent
Reason for Study: Abdominal Pain
EKG- Treatment ONCE
02/11/24 00:15
CT Abd/pelvis W Iv Cont Urgent
Reason For Exam: N/V/D and abd pain
02/11/24 02:30
Amoxicillin 875 mg/Clav 125 mg [Augmentin 875 mg/125 mg] 1 tablet PO NOW STA
Abnormal Lab Results
02/10/24
20:44
Carbon Dioxide 21 L mmol/L
(22-30)
BUN 28 H mg/dl
(7-17)
Creatinine 1.1 H mg/dL
(0.6-1.0)
Glucose 107 H mg/dl
(70-99)
02/10/24 20:44
02/10/24 20:44
Vital Signs
Initial and Last Documented VS:
Initial Vital Signs
Temp Pulse Resp BP Pulse Ox
98.2 F 102 20 136/83 97
02/10/24 20:36 02/10/24 20:36 02/10/24 20:36 02/10/24 20:36 02/10/24 20:36
Last Documented Vital Signs
Temp Pulse Resp BP Pulse Ox
98.2 F 93 34 140/71 100
02/10/24 20:36 02/11/24 02:27 02/11/24 02:27 02/11/24 02:00 02/11/24 01:45
<Ben Schaefer, DO - Last Filed: 02/11/24 02:39>
MDM/Problems Addressed
Differential Diagnosis Includes:
HPI and MDM Narrative:
83-year-old female presenting for evaluation of several days of diarrhea. This was preceded by nausea and vomiting which has since improved. This is associated with generalized abdominal pain and bloating. She does come from a nursing facility
but is not sure about sick contacts. Patient is afebrile. She complains of mild dizziness. She is clinically dehydrated. Will give IV fluids and obtain CT. She denies chest pain or shortness of breath
Physical exam
General: Well appearing and non-toxic
HEENT: protecting airway. Mildly dry mucous membrane
Neck: appears supple
CV: No evidence of cyanosis. Regular rate and rhythm
Resp: No accessory muscle use
Abd: Non-distended. Vague abdominal tenderness throughout. No rebound
Extremities: No deformities
Neuro: alert
Psych: Normal affect
Skin: Intact
Problems Addressed including Acute and Chronic Conditions affecting care:
1. Nausea/vomiting/diarrhea
Acuity: acute
Prognosis: stable
Details: Likely viral gastroenteritis versus colitis. However, given age and complaint, will obtain CT abdomen/pelvis. Will obtain screening EKG. Patient provided IV fluids
Updates
CT concerning for possible colitis. Will start Augmentin
Differential Diagnosis (but not limited to): Viral gastroenteritis, colitis, small bowel obstruction
Testing considered: Troponin but she denies chest pain or shortness of breath
Drug therapy (if applicable): OTC meds, please see d/c instruction regarding Rx drugs
Amount and/or Complexity of Data Reviewed
Clinical info obtained from: Patient
External data reviewed: N/A
Labs I independently reviewed (but not limited to): Mildly elevated BUN and creatinine. LFTs within normal limit
Radiology: The CT scan was personally and independently reviewed. In addition, official CT report reviewed.
Pulse Ox: not hypoxic
EKG independently reviewed: Sinus rhythm, normal axis, no STEMI
Ware Carrier: N/A
Critical Care: N/A
Risk of Complication:
Social Determinants of health: Good social support
Discussed with other providers: N/A
Escalation of Care includes Admit/Obs: After being observed in the Emergency Department, pt stable for discharge.
Occasional wrong word or 'sound a like' substitutions may have occurred due to the inherent limitations of voice recognition software. Read the chart carefully and recognize, using context, where substitutions have occurred.
<Ben Schaefer DO - Last Filed: 02/11/24 02:39>
*Critical Care Note
Total Time (30-74mins, 75-104mins- exclusive of procedures): Not Applicable
ED Attending Note
<Abbe Kimble PA-C - Last Filed: 02/10/24 20:38>
-
Portions of this chart may have been created with voice recognition software.� Occasional wrong word or��sound alike� substitutions may have occurred due to the inherent limitations of voice recognition software.
Discharge Plan
Departure
Patient Disposition: Home (Routine Discharge)
Date of Disposition: 02/11/24
Time of Disposition: 02:37
Patient with high blood pressure during this ER visit?: No
Discharge Problem:
Colitis
Instructions: Colitis (DC)
Prescriptions:
New
amoxicillin-pot clavulanate 875-125 mg tablet
1 tab PO BID Qty: 14 0RF
No Action
lamotrigine 150 MG tablet
300 mg PO BID
diltiazem HCl 240 MG capsule,extended release 24hr
240 mg PO DAILY
omeprazole 20 MG capsule,delayed release(DR/EC)
20 mg PO DAILY
acyclovir 200 MG capsule
200 mg PO BID
aripiprazole 10 MG tablet
10 mg PO DAILY
duloxetine 30 MG capsule,delayed release(DR/EC)
90 mg PO DAILY
multivitamin Tablet
1 tab PO DAILY
metoprolol succinate 50 mg tablet extended release 24 hr
50 mg PO DAILY
meclizine 12.5 mg Tablet
12.5 mg PO Q8H PRN (Reason: dizziness)
celecoxib 100 mg capsule
100 mg PO DAILY
dextroamphetamine-amphetamine 15 mg capsule,extended release 24hr
30 mg PO DAILY
Patient Comments:
05/21/2023: last filled 05/03/23, 60 tabs for [address] [facility]
inulin 1.5 gram Tablet,Chewable
3 g PO DAILY
Hair, Skin and Nails (biotin)
2 tab PO DAILY
sennosides [senna] 8.6 MG tablet
8.6 mg PO DAILY PRN (Reason: constipation)
celecoxib 100 mg capsule
100 mg PO ONCE Qty: 14 0RF
Referrals:
Malika Alexander MD [Family Provider] -
Activity Restrictions/Additional Instructions:
Please return for any worsening symptoms.
You may return at any time if you have further concerns.
Please follow up with your doctor at the first available appointment, preferably this week.
Thank you for choosing [facility].
Interventions
Interventions:
*Risk Screen - Suicide Last Done: 02/10/24 20:36
*General Assessment Last Done: 02/10/24 20:36
*ED COVID-19 Vaccine History Last Done: 02/10/24 20:36
IY-[id number]-[id number] Assessment Last Done: 02/10/24 23:50
Discharge Date and Time
Print Language: BELARUSIAN
[2024-02-10 20:51] LABS: % Basophils 0.4 % (0-2); % Eosinophils 2.2 % (0-6); % Immature Granulocytes 0.3 % (0-0.5); % Lymphocytes 23.4 % (20.5-51.1); % Monocytes 7.8 % (1.7-9.3); % Neutrophils 65.9 % (42.2-75.2); Absolute Eosinophils 0.2 10^3/uL (0-0.7); Absolute Lymphocytes 1.8 10^3/uL (1.2-3.4); Absolute Monocytes 0.6 10^3/uL (0.1-0.6); Hematocrit 40.9 % (37.0-47.0); Hemoglobin 13.5 g/dL (12.0-16.0); Mean Corpuscular Hgb 28.9 pg (27.0-31.0); Mean Corpuscular Volume 87.6 fL (81.0-99.0); Nucleated Red Blood Cells % 0 %; Platelet Count 233 10^3/uL (130-400); Red Blood Cell Count 4.67 10^6/uL (4.20-5.40); Red Cell Dist. Width 13.5 % (11.5-14.5); White Blood Cell Count 7.6 10^3/uL (4.8-10.8)
[2024-02-10 21:42] LABS: ALT (SGPT) 21 U/L (0-35); AST (SGOT) 24 U/L (14-36); Albumin 4.4 g/dl (3.5-5.0); Alkaline Phosphatase 84 U/L (38-126); Blood Urea Nitrogen 28 mg/dl (7-17); Calcium 9.3 mg/dl (8.4-10.2); Carbon Dioxide 21 mmol/L (22-30); Chloride 104 mmol/L (98-107); Glucose 107 mg/dl (70-99); Lipase 120 U/L (23-300); Potassium 3.7 mmol/L (3.5-5.1); Sodium 140 mmol/L (135-145); Total Bilirubin 0.4 mg/dl (0.2-1.3); Total Protein 7.1 g/dl (6.3-8.2); eGFR 50.48
[2024-02-10 23:49] VITALS: BP 138/86; BMI 36.9
[2024-02-10] MEDS: NSS 1000 IV (23:50)
[2024-02-11] VITALS (8 sets, daily range): BP systolic 122–140; BP diastolic 64–99
[2024-02-11] MEDS: AUGMENTIN 875 MG/125 MG 1 TABLET PO (02:33)
== END 2024-02-11 05:38 | disposition home or self-care (01) ==
LOC: EMR 20:35
PROVIDERS: Physician Assistant Medical; EMERGENCY PHYSICIAN Student in an Organized Health Care Education/Training Program; FAMILY PHYSICIAN Internal Medicine Geriatric Medicine
DX: K52.9 Noninfective gastroenteritis and colitis, unspecified (principal); R10.84 Generalized abdominal pain; R14.0 Abdominal distension (gaseous); I10 Essential (primary) hypertension; R56.9 Unspecified convulsions; F17.200 Nicotine dependence, unspecified, uncomplicated; Z85.9 Personal history of malignant neoplasm, unspecified
CPT/HCPCS: 99285; 96360; 74177; 80053; 83690; 85025; 93005; Q9967

== ENCOUNTER 2024-02-19 14:08 | Inpatient (IN) | payer OTHER, SELFPAY ==
[2024-02-19] VITALS (9 sets, daily range): BP systolic 119–172; BP diastolic 60–108; BMI 36.4; BMI 35.0
[2024-02-19 07:58] LABS: % Basophils 0.5 % (0-2); % Eosinophils 6.1 % (0-6); % Immature Granulocytes 0.4 % (0-0.5); % Lymphocytes 27.1 % (20.5-51.1); % Monocytes 7.7 % (1.7-9.3); % Neutrophils 58.2 % (42.2-75.2); Absolute Eosinophils 0.5 10^3/uL (0-0.7); Absolute Lymphocytes 2.2 10^3/uL (1.2-3.4); Absolute Monocytes 0.6 10^3/uL (0.1-0.6); Absolute Neutrophils 4.7 10^3/uL (1.4-6.5); Hematocrit 36.5 % (37.0-47.0); Hemoglobin 12.2 g/dL (12.0-16.0); Mean Corp Hgb Conc. 33.4 g/dL (33.0-37.0); Mean Corpuscular Hgb 29.5 pg (27.0-31.0); Mean Corpuscular Volume 88.4 fL (81.0-99.0); Mean Platelet Volume 9.6 fL (7.4-10.4); Nucleated Red Blood Cells % 0 %; Platelet Count 214 10^3/uL (130-400); Red Blood Cell Count 4.13 10^6/uL (4.20-5.40); Red Cell Dist. Width 13.2 % (11.5-14.5); White Blood Cell Count 8.1 10^3/uL (4.8-10.8)
[2024-02-19 08:16] LABS: ALT (SGPT) 20 U/L (0-35); AST (SGOT) 23 U/L (14-36); Albumin 4.1 g/dl (3.5-5.0); Alkaline Phosphatase 92 U/L (38-126); Blood Urea Nitrogen 9 mg/dl (7-17); Calcium 9.2 mg/dl (8.4-10.2); Carbon Dioxide 27 mmol/L (22-30); Chloride 108 mmol/L (98-107); Glucose 103 mg/dl (70-99); Potassium 3.3 mmol/L (3.5-5.1); Sodium 145 mmol/L (135-145); Total Bilirubin 0.3 mg/dl (0.2-1.3); Total Protein 6.6 g/dl (6.3-8.2); eGFR > 60.00
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
[2024-02-19] MEDS: OMNIPAQUE 50 ML PO (09:13)
[2024-02-19] MEDS: KLOR-CON 40 MEQ PO (09:13)
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
[2024-02-19] MEDS: FLAGYL 500 MG 100 IV (12:46)
[2024-02-19] MEDS: LEVAQUIN 150 IV (13:40)
[2024-02-19 14:31] LABS: Magnesium 2.1 mg/dl (1.6-2.3)
[2024-02-19 16:08] LABS: TSH Reflex To Free T4 0.65 uIU/ml (0.47-4.68)
--- NOTE | 2024-02-19 18:16 | W.PN.UPDATE ---
Update Note
Progress Note Update
norovirus positive. Will stop antibiotics. Reviewed CT with GI who agree with plan.
supportive care - fluids overnight
consider Pepto Bismol tomorrow if no improvement tomorrow
patient updated
--- NOTE | 2024-02-19 19:05 | PTCARENOTE ---
Pt received from ED at 1850. Pt pleasant, AAOX4, VVS, and able to ambulate into room. Pt does not complain of any pain at this time. Pt receptive to room and call meléndez. Pt bed in lowest position and call meléndez within reach. Pt educated on importance
of call meléndez usage, pt relays understanding and cooperation. Will continue with current plan of care.
[2024-02-19] MEDS: LR 500 IV (19:47)
[2024-02-19] MEDS: LOVENOX 40 MG SC (19:49)
[2024-02-19] MEDS: LR 1000 IV (19:49)
[2024-02-19] MEDS: NEURONTIN 100 MG PO ×2 (19:50→21:52)
[2024-02-19] MEDS: LAMICTAL 300 MG PO (19:50)
[2024-02-19] MEDS: ZOVIRAX 200 MG PO (19:51)
[2024-02-19] MEDS: VISBIOME 1 CAP PO (20:16)
[2024-02-19] MEDS: LIPITOR 10 MG PO (21:52)
[2024-02-20] VITALS: BP 144/89
[2024-02-20 08:00] VITALS: BP 165/100
[2024-02-20 08:48] LABS: Hematocrit 42.1 % (37.0-47.0); Hemoglobin 14.1 g/dL (12.0-16.0); Mean Corp Hgb Conc. 33.5 g/dL (33.0-37.0); Mean Corpuscular Hgb 29.3 pg (27.0-31.0); Mean Corpuscular Volume 87.5 fL (81.0-99.0); Mean Platelet Volume 9.7 fL (7.4-10.4); Platelet Count 256 10^3/uL (130-400); Red Blood Cell Count 4.81 10^6/uL (4.20-5.40); Red Cell Dist. Width 13.2 % (11.5-14.5); White Blood Cell Count 11.7 10^3/uL (4.8-10.8)
[2024-02-20 09:21] LABS: Blood Urea Nitrogen 4 mg/dl (7-17); Calcium 9.7 mg/dl (8.4-10.2); Carbon Dioxide 28 mmol/L (22-30); Chloride 105 mmol/L (98-107); Estimated Creatinine Clearance 78 ml/min; Glucose 127 mg/dl (70-99); Magnesium 1.9 mg/dl (1.6-2.3); Potassium 3.3 mmol/L (3.5-5.1); Sodium 145 mmol/L (135-145); eGFR > 60.00
[2024-02-20] MEDS: KCL 40 MEQ PO (10:37)
[2024-02-20] MEDS: CARDIZEM CD 240 MG PO (10:37)
[2024-02-20] MEDS: CYMBALTA DELAYED RELEASE 90 MG PO (10:37)
[2024-02-20] MEDS: LAMICTAL 300 MG PO ×2 (10:38→20:21)
[2024-02-20] MEDS: PROTONIX 40 MG PO (10:38)
[2024-02-20] MEDS: ABILIFY 10 MG PO (10:38)
[2024-02-20] MEDS: VISBIOME 1 CAP PO (10:39)
[2024-02-20] MEDS: NEURONTIN 100 MG PO ×3 (10:39→21:56)
[2024-02-20] MEDS: TOPROL XL 50 MG PO ×2 (10:39→20:22)
[2024-02-20] MEDS: ZOVIRAX 200 MG PO ×2 (10:40→20:21)
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
[2024-02-20] MEDS: TYLENOL 650 MG PO (10:56)
--- NOTE | 2024-02-20 12:04 | W.DCSUMMARY ---
Addendum entered and electronically signed by Maximo Gaspar MD 02/21/24 10:43:
Remained discharged as of 02/21/24
Original Note:
Discharge Summary
Discharge Data
Date of Admission: 02/19/24
Date of Discharge: 02/20/24
-
Pending Results: No
Hospital Course
83yo F with PMHx of bilateral blindness, HPH s/p LEDGER POSTER shunt, Seizure d/o, HTN, bipolar, anxiety, HLD came with few weeks of multiple bowel movement however only one BM on the day of admission and none on the next day. Found norovirus and concern for
mild diverticulitis. Tolerated food. Toprol increased since poor BP control and sinus tachycardia on EKG.. Medically stable for d/c with empiric flagyl. Provide GI referral in 4-6 weeks for pancreatic w/u and colonoscopy
I have spent at least 59min reviewing chart, test results and providing direct patient care
Patient was managed for:
#Diarrhea 2/2 norovirus
#Mild uncomplicated diverticulitis with minimal leukocytosis
#Hypokalemia
#Fatty infiltration of pancreas
#Stable calcifications of the stomach
#Hx of Herpes zoster
#Tachycardia
#ASCVD
#Liver simple cyst
#b/l renal cysts
#NPH s/p LEDGER POSTER shunt
#DJD s/p spinal surgery
#Bipolar d/o
#Anxiety D/O
#Seizure d/o
#Essential HTN
Discharge Plan
-
Patient Disposition: Home (Routine Discharge)
Discharge Diagnosis/Procedures: Enteritis
Diet: Low Fat and Low Fiber
Activity: As tolerated
Driving Restrictions: As prior to admission
Referrals:
Maya Grace MD [Active] - in four to six weeks (for colonoscopy and pancreatic workup)
Malika Alexander MD [Family Provider] -
Prescriptions:
New
loperamide 2 mg Capsule
2 mg PO Q6HPRN PRN (Reason: diarrhea) Qty: 30 0RF
metoprolol succinate 50 mg Tablet Extended Release 24 Hr
50 mg PO BID Qty: 60 0RF
metronidazole 500 mg Tablet
500 mg PO TID Qty: 15 0RF
Lactobac/Bifidobac [Visbiome]
1 cap PO DAILY Qty: 30 0RF
Continued
lamotrigine 150 MG tablet
300 mg PO BID
diltiazem HCl 240 MG capsule,extended release 24hr
240 mg PO DAILY
omeprazole 20 MG capsule,delayed release(DR/EC)
20 mg PO DAILY
aripiprazole 10 MG tablet
10 mg PO DAILY
duloxetine 30 MG capsule,delayed release(DR/EC)
90 mg PO DAILY
celecoxib 100 mg capsule
100 mg PO DAILY
inulin 1.5 gram Tablet,Chewable
3 g PO DAILY
Hair, Skin and Nails (biotin) 10,000 mcg Tablet,Chewable
10,000 mcg PO DAILY Qty: 0
simvastatin [Zocor] 20 mg Tablet
20 mg PO HS
acyclovir 200 mg Capsule
200 mg PO BID
gabapentin 100 mg Capsule
100 mg PO TID
Discontinued
metoprolol succinate 50 mg tablet extended release 24 hr
50 mg PO DAILY
Discharge Orders:
Discharge Patient (As Directed); Ordered 02/20/24
Ordered By: Maximo Gaspar
Discharge Date and Time
Print Language: CHINESE
--- NOTE | 2024-02-20 13:34 | CM ---
CM reviewed chart, positive Norovirus, patient for discharge today. Patient from [facility]. Patient confirms she has a cane and scooter at home, denies VN or SNF history. Patient PCP Malika Alexander, pharmacy [facility],
confirms prescription coverage. Patient reports she does not feel ready to discharge from hospital. TT to update Hospitalist, confirmed patient is for discharge today. CM reviewed IMM, right to appeal. Patient would like to move forward with appeal
process. IMM signed. CM will continue to follow for all discharge planning needs.
Plan; patient to appeal discharge- plan return to [facility] when stable, pending appeal process.
[2024-02-20 16:00] VITALS: BP 139/90
[2024-02-20] MEDS: FLAGYL 500 MG PO ×2 (17:29→21:56)
[2024-02-20] MEDS: LOVENOX 40 MG SC (17:29)
[2024-02-20] MEDS: IMODIUM 2 MG PO (20:21)
[2024-02-20] MEDS: LIPITOR 10 MG PO (21:56)
[2024-02-20 23:05] VITALS: BP 147/81
[2024-02-21] MEDS: TYLENOL 650 MG PO (01:29)
[2024-02-21 07:30] VITALS: BP 135/95
[2024-02-21] MEDS: ABILIFY 10 MG PO (08:16)
[2024-02-21] MEDS: CYMBALTA DELAYED RELEASE 90 MG PO (08:16)
[2024-02-21] MEDS: VISBIOME 1 CAP PO (08:17)
[2024-02-21] MEDS: FLAGYL 500 MG PO (08:17)
[2024-02-21] MEDS: LAMICTAL 300 MG PO (08:17)
[2024-02-21] MEDS: NEURONTIN 100 MG PO (08:18)
[2024-02-21] MEDS: TOPROL XL 50 MG PO (08:18)
[2024-02-21] MEDS: PROTONIX 40 MG PO (08:18)
[2024-02-21] MEDS: ZOVIRAX 200 MG PO (08:18)
[2024-02-21] MEDS: CARDIZEM CD 240 MG PO (08:18)
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
[2024-02-21 11:00] VITALS: BP 110/61
--- NOTE | 2024-02-21 11:11 | CM ---
Addendum entered by Jacqueline Mckinney 02/21/24 11:34:
[facility] to provide transportation, 12:00 p.m.
Original Note:
CM reviewed chart, patient for discharge today. Patient seen, agreeable to discharge. CM provided [facility] contact number [phone] for transport services. CM will continue to follow for all discharge planning needs.
Plan; [facility] [place], [facility] to transport.
== END 2024-02-21 12:47 | disposition home or self-care (01) | DRG 392 ==
LOC: 4 WEST ACU 14:08
PROVIDERS: Emergency Medicine; ADMITTING PHYSICIAN Student in an Organized Health Care Education/Training Program; ATTENDING PHYSICIAN Internal Medicine; EMERGENCY PHYSICIAN Student in an Organized Health Care Education/Training Program; FAMILY PHYSICIAN Internal Medicine Geriatric Medicine
DX: A08.11 Acute gastroenteropathy due to Norwalk agent (principal); K57.32 Diverticulitis of large intestine without perforation or abscess without bleeding; K21.9 Gastro-esophageal reflux disease without esophagitis; I25.10 Atherosclerotic heart disease of native coronary artery without angina pectoris; Z66 Do not resuscitate; I10 Essential (primary) hypertension; G47.33 Obstructive sleep apnea (adult) (pediatric); E78.5 Hyperlipidemia, unspecified; F31.9 Bipolar disorder, unspecified; E87.6 Hypokalemia; R00.0 Tachycardia, unspecified; H54.3 Unqualified visual loss, both eyes; Z98.2 Presence of cerebrospinal fluid drainage device; Z96.611 Presence of right artificial shoulder joint; Z87.820 Personal history of traumatic brain injury; Z79.899 Other long term (current) drug therapy; Z87.891 Personal history of nicotine dependence
CPT/HCPCS: 74177; 80048; 80053; 83735; 84132; 84443; 85025; 85027; 87045; 87046; 87324; 87328; 87329; 87427; 87449; 87798; 93005; 96365; 96367; 99285; Q9967

== ENCOUNTER 2024-03-27 15:15 | Emergency (ER) | payer OTHER, SELFPAY ==
[2024-03-27 15:21] VITALS: BP 114/77
--- NOTE | 2024-03-27 15:32 | ED.GENMED ---
History of Present Illness
General
Chief Complaint: Abdominal Pain
Source: patient
Time Seen by Provider: 03/27/24 15:17
History of Present Illness
History of Present Illness:
83-year-old female presents to the emergency room from [facility]. The physician there referred her to the emergency room due to left-sided abdominal pain. Patient evidently had a fall and she injured her left side. She has had pain since
then. She denies any nausea, vomiting, diarrhea, fever or chills. She denies any cold or URI symptoms. She denies any urinary symptoms. Pain is worse with movement. Patient typically ambulates with a walker and states she is able to ambulate at
her baseline. The patient fell because she has poor vision and sometimes trips over things. No anticoagulants.
Past History
Past History
ED Past Medical History: Cancer, HTN, Seizures, Psychiatric and Other (SDH)
ED Past Surgical History: Appendectomy, Brain (VPS shunt), Gynecological, Orthopedic and Urological
Social History
Tobacco: Smoker
Alcohol: None
Drug: None
Living: with family
Employment: Retired
Family History
Family History: Hypertension
Phy Exam
Physical Exam
Physical Exam:
General: Awake, Alert, Oriented X3. No acute distress, high BMI, appears chronically ill
Vitals: unremarkable
Head: Atraumatic
Eyes: Pupils equal, EOMI
Throat: Airway intact, no exudates
Neck: Trachea midline
Lungs: Clear and equal b/l
Heart: Regular rate, 2/6 systolic murmurs
Abd: Soft, tender to palpation left lower abdomen, no pulsatile mass
Neuro: Nonfocal
Skin: Warm, dry, no rash
Extremities: pulses equal b/l, no edema
Course
Orders/Labs/Results
Orders:
Orders
03/27/24 15:20
ECG [Electrocardiogram (*1)] Urgent
Reason for Study: Tachycardia
03/27/24 15:21
EKG- Treatment ONCE
03/27/24 15:31
CT Abd/Pel (IV only)-DH only Urgent
Comment:
Reason For Exam: left sided abd pain, recent fall
Acetaminophen [Tylenol] 1,000 mg PO NOW STA
03/27/24 15:41
Type+Screen Urgent
Complete Blood Count/With Diff Urgent
Comprehensive Metabolic Panel Urgent
03/27/24 17:24
Urinalysis Reflex To Culture Urgent
Date Specimen was Collected: 03/27/24
Time Specimen was Collected: 15:33
Abnormal Lab Results
03/27/24
15:41
Absolute Monos (auto) 0.9 H 10^3/uL
(0.1-0.6)
Lymphocytes % 19.3 L %
(20.5-51.1)
BUN 18 H mg/dl
(7-17)
03/27/24 15:41
03/27/24 15:41
Vital Signs
Initial and Last Documented VS:
Initial Vital Signs
Temp Pulse Resp Pulse Ox
98.1 F 114 20 94
03/27/24 15:17 03/27/24 15:17 03/27/24 15:17 03/27/24 15:17
Last Documented Vital Signs
Temp Pulse Resp BP Pulse Ox
98.1 F 97 20 124/76 99
03/27/24 15:17 03/27/24 20:17 03/27/24 20:17 03/27/24 20:17 03/27/24 20:17
MDM/Problems Addressed
Differential Diagnosis Includes:
Splenic injury, other intra-abdominal injury, abdominal wall contusion, diverticulitis
MDM/Problems Addressed:
Patient sent to the emergency room due to recent fall, abdominal pain and an elevated heart rate at the doctor's office. Patient's abdominal exam shows some mild tenderness but she does not have a surgical abdomen. Her labs are reassuring. EKG
here shows no acute ischemic changes or any dysrhythmia. There is no evidence for an acute unstable process. Patient stable for discharge back to her facility.
*Radiology
Radiology exam reviewed: radiology read reviewed
*Pulse Oximetry
Patient hypoxic: no
*EKG
Interpreted by ED Provider?: Yes
Interpretation: abnormal
Heart Rate: 115
Rate: tachycardiac
Rhythm: sinus and PVC's
Interval: long QT
Ischemia: non-specific ST changes
*[employer] Interpretation
Rate: tachycardiac
Rhythm: sinus tachycardia
*Critical Care Note
Total Time (30-74mins, 75-104mins- exclusive of procedures): Not Applicable
ED Attending Note
-
Portions of this chart may have been created with voice recognition software.� Occasional wrong word or��sound alike� substitutions may have occurred due to the inherent limitations of voice recognition software.
Discharge Plan
Departure
Patient Disposition: Assisted Living
Date of Disposition: 03/27/24
Time of Disposition: 19:15
Condition: Good
Discharge Problem:
Fall, Abdominal pain
Instructions: Preventing falls - ED discharge instructions, Abdominal Pain
Prescriptions:
No Action
lamotrigine 150 MG tablet
300 mg PO BID
diltiazem HCl 240 MG capsule,extended release 24hr
240 mg PO DAILY
omeprazole 20 MG capsule,delayed release(DR/EC)
20 mg PO DAILY
aripiprazole 10 MG tablet
10 mg PO DAILY
duloxetine 30 MG capsule,delayed release(DR/EC)
90 mg PO DAILY
celecoxib 100 mg capsule
100 mg PO DAILY
inulin 1.5 gram Tablet,Chewable
3 g PO DAILY
Hair, Skin and Nails (biotin) 10,000 mcg Tablet,Chewable
10,000 mcg PO DAILY Qty: 0
simvastatin [Zocor] 20 mg Tablet
20 mg PO HS
acyclovir 200 mg Capsule
200 mg PO BID
gabapentin 100 mg Capsule
100 mg PO TID
loperamide 2 mg Capsule
2 mg PO Q6HPRN PRN (Reason: diarrhea) Qty: 30 0RF
metoprolol succinate 50 mg Tablet Extended Release 24 Hr
50 mg PO BID Qty: 60 0RF
metronidazole 500 mg Tablet
500 mg PO TID Qty: 15 0RF
Lactobac/Bifidobac [Visbiome]
1 cap PO DAILY Qty: 30 0RF
Referrals:
Malika Alexander MD [Family Provider] -
Interventions
Interventions:
*General Assessment Last Done: 03/27/24 15:17
ED- Fall Risk Assessment Last Done: 03/27/24 15:21
*Nursing Disposition Last Done: 03/27/24 21:00
RN-Mmsboi-Fpestujspk Assessment Last Done: 03/27/24 15:21
Discharge Date and Time
Discharge Date/Time: 03/27/24 21:01
Print Language: PANAMANIAN
[2024-03-27] MEDS: TYLENOL 1000 MG PO (15:43)
[2024-03-27 16:04] LABS: % Basophils 0.5 % (0-2); % Eosinophils 2.8 % (0-6); % Immature Granulocytes 0.3 % (0-0.5); % Lymphocytes 19.3 % (20.5-51.1); % Monocytes 9.3 % (1.7-9.3); % Neutrophils 67.8 % (42.2-75.2); Absolute Basophils 0.1 10^3/uL (0-0.2); Absolute Eosinophils 0.3 10^3/uL (0-0.7); Absolute Lymphocytes 1.8 10^3/uL (1.2-3.4); Absolute Monocytes 0.9 10^3/uL (0.1-0.6); Absolute Neutrophils 6.2 10^3/uL (1.4-6.5); Hematocrit 38.1 % (37.0-47.0); Hemoglobin 12.6 g/dL (12.0-16.0); Mean Corp Hgb Conc. 33.1 g/dL (33.0-37.0); Mean Corpuscular Hgb 28.7 pg (27.0-31.0); Mean Corpuscular Volume 86.8 fL (81.0-99.0); Mean Platelet Volume 9.6 fL (7.4-10.4); Nucleated Red Blood Cells % 0 %; Platelet Count 258 10^3/uL (130-400); Red Blood Cell Count 4.39 10^6/uL (4.20-5.40); Red Cell Dist. Width 13.1 % (11.5-14.5); White Blood Cell Count 9.2 10^3/uL (4.8-10.8)
[2024-03-27 16:20] LABS: ALT (SGPT) 20 U/L (0-35); AST (SGOT) 21 U/L (14-36); Albumin 4.5 g/dl (3.5-5.0); Alkaline Phosphatase 95 U/L (38-126); Blood Urea Nitrogen 18 mg/dl (7-17); Calcium 9.7 mg/dl (8.4-10.2); Carbon Dioxide 26 mmol/L (22-30); Chloride 105 mmol/L (98-107); Glucose 92 mg/dl (70-99); Potassium 3.9 mmol/L (3.5-5.1); Sodium 141 mmol/L (135-145); Total Bilirubin 0.3 mg/dl (0.2-1.3); Total Protein 7.4 g/dl (6.3-8.2); eGFR > 60.00
[2024-03-27 17:06] VITALS: BP 120/72
[2024-03-27 20:17] VITALS: BP 122/70; BP 124/76
== END 2024-03-27 21:01 ==
LOC: EMR 15:15
PROVIDERS: EMERGENCY PHYSICIAN Emergency Medicine; FAMILY PHYSICIAN Internal Medicine Geriatric Medicine
DX: R10.9 Unspecified abdominal pain (principal); I10 Essential (primary) hypertension; F17.200 Nicotine dependence, unspecified, uncomplicated; Z90.49 Acquired absence of other specified parts of digestive tract
CPT/HCPCS: 99284; 74177; 80053; 85025; 86850; 86900; 86901; 93005; Q9967

== ENCOUNTER 2024-05-31 12:24 | Emergency (ER) | payer OTHER, SELFPAY ==
[2024-05-31] VITALS (7 sets, daily range): BP systolic 114–125; BP diastolic 49–100; BMI 35.2
[2024-05-31 13:31] LABS: % Basophils 0.5 % (0-2); % Eosinophils 2.4 % (0-6); % Immature Granulocytes 1.5 % (0-0.5); % Monocytes 6.3 % (1.7-9.3); % Neutrophils 78.3 % (42.2-75.2); Absolute Basophils 0.1 10^3/uL (0-0.2); Absolute Eosinophils 0.2 10^3/uL (0-0.7); Absolute Immature Granulocytes 0.2 10^3/uL (0-0.05); Absolute Lymphocytes 1.1 10^3/uL (1.2-3.4); Absolute Monocytes 0.6 10^3/uL (0.1-0.6); Hematocrit 34.8 % (37.0-47.0); Hemoglobin 11.5 g/dL (12.0-16.0); Mean Corpuscular Hgb 28.7 pg (27.0-31.0); Mean Corpuscular Volume 86.8 fL (81.0-99.0); Mean Platelet Volume 9.2 fL (7.4-10.4); Nucleated Red Blood Cells % 0 %; Platelet Count 419 10^3/uL (130-400); Red Blood Cell Count 4.01 10^6/uL (4.20-5.40); Red Cell Dist. Width 13.7 % (11.5-14.5); White Blood Cell Count 10.2 10^3/uL (4.8-10.8)
[2024-05-31 13:56] LABS: ALT (SGPT) 94 U/L (0-35); AST (SGOT) 71 U/L (14-36); Albumin 3.3 g/dl (3.5-5.0); Alkaline Phosphatase 213 U/L (38-126); Blood Urea Nitrogen 18 mg/dl (7-17); Calcium 9.4 mg/dl (8.4-10.2); Carbon Dioxide 30 mmol/L (22-30); Chloride 100 mmol/L (98-107); Estimated Creatinine Clearance 58 ml/min; Glucose 125 mg/dl (70-99); Potassium 3.9 mmol/L (3.5-5.1); Sodium 140 mmol/L (135-145); Total Bilirubin 0.9 mg/dl (0.2-1.3); Total Protein 6.7 g/dl (6.3-8.2); eGFR > 60.00
--- NOTE | 2024-05-31 14:02 | ED.GENMED ---
History of Present Illness
General
Chief Complaint: Fall
Source: patient
Exam Limitations: none
Time Seen by Provider: 05/31/24 13:56
History of Present Illness
History of Present Illness:
Patient states she fell out of bed trying to get up to go to the bathroom. She states she normally does not use a walker or cane. She has no specific complaints at rest. She had no syncope. She denies infectious symptoms. She was sent just for
evaluation
Past History
Past History
ED Past Medical History: Cancer, HTN, Seizures, Psychiatric and Other (SDH)
ED Past Surgical History: Appendectomy, Brain (VPS shunt), Gynecological, Orthopedic and Urological
Social History
Tobacco: Smoker
Alcohol: None
Drug: None
Living: with family
Employment: Retired
Family History
Family History: Hypertension
Review of Systems
Review of Systems
All Other Systems: Not applicable
Constitutional: Denies fever or chills
Respiratory: Reports no symptoms
Cardiac: Reports no symptoms
ABD/GI: Reports no symptoms
Phy Exam
Physical Exam
Physical Exam:
TRAUMA EXAM:
VITAL SIGNS: Vital signs reviewed, cooperative. Elderly and frail
DISTRESS: No active disease
EYES: Pupils reactive, no orbital trauma
NOSE: No deformity or epistaxis
FACE AND SCALP: No scalp or facial trauma, external canals no blood
NECK: Supple nontender
BACK: Back nontender, pelvis stable to compression
RESPIRATORY: No distress, breath sounds normal, no tender chest wall
CARDIAC: Regular rate and rhythm. Mild midsystolic murmur
ABDOMEN: Soft nontender bowel sounds normal
SKIN: Skin intact no bleeding, color normal
EXTREMITIES: Tenderness over the right patella with mild ecchymosis. Mild ecchymosis to the left anterior patella that appears old. Mild ecchymosis to the left second and third toe that also appears old. Able to straight leg raise both lower
extremities. Pelvis is stable.
NEUROLOGICAL: Alert, oriented, no motor deficits
PSYCH: Mood affect normal
Course
Orders/Labs/Results
Orders:
Orders
05/31/24 12:33
Electrocardiogram (*1) Urgent
Reason for Study: Fatigue / Weakness
EKG- Treatment ONCE
05/31/24 13:19
Complete Blood Count/With Diff Urgent
Comprehensive Metabolic Panel Urgent
05/31/24 14:01
Hip, Right 2-3 Views [CR Hip - RT w/wo Pel 2-3 Vw*] Urgent
Comment:
Reason For Exam: Trauma
Include a pelvis x-ray?: Yes
Knee, Right 4 or More Views [CR Knee- Right 4 Or More View*] Urgent
Comment:
Reason For Exam: Trauma
05/31/24 14:06
Straight cath- Treatment ONCE
US Abdomen Complete/Upper Urgent
Comment:
Reason For Exam: Elevated LFTs/bandemia
05/31/24 15:45
Urinalysis Reflex To Culture Urgent
Date Specimen was Collected: 05/31/24
Time Specimen was Collected: 15:44
Urine Microscopic Reflex Cult Urgent
Abnormal Lab Results
05/31/24 05/31/24
13:19 15:45
RBC 4.01 L 10^6/uL
(4.20-5.40)
Hgb 11.5 L g/dL
(12.0-16.0)
Hct 34.8 L %
(37.0-47.0)
Plt Count 419 H 10^3/uL
(130-400)
Abs Immat Gran (auto) 0.2 H 10^3/uL
(0-0.05)
Absolute Neuts (auto) 8.0 H 10^3/uL
(1.4-6.5)
Absolute Lymphs (auto) 1.1 L 10^3/uL
(1.2-3.4)
Immature Gran % 1.5 H %
(0-0.5)
Neutrophils % 78.3 H %
(42.2-75.2)
Lymphocytes % 11.0 L %
(20.5-51.1)
BUN 18 H mg/dl
(7-17)
Glucose 125 H mg/dl
(70-99)
AST 71 H U/L
(14-36)
ALT 94 H U/L
(0-35)
Alkaline Phosphatase 213 H U/L
(38-126)
Albumin 3.3 L g/dl
(3.5-5.0)
Ur Occult Blood Reflex 1+ A
(Negative)
Urine Urobilinogen 2+ A
(Neg - 1+)
Urine RBC 3-6 A /HPF
(0-2)
Urine Bacteria (Reflex) Few A
(Negative)
Urine Albumin (Reflex) 1+ A
(Neg - Trace)
05/31/24 13:19
05/31/24 13:19
Vital Signs
Initial and Last Documented VS:
Initial Vital Signs
BP
125/63
05/31/24 12:31
Last Documented Vital Signs
Temp Pulse Resp BP Pulse Ox
97.9 F 81 27 121/62 88
05/31/24 12:34 05/31/24 16:30 05/31/24 16:30 05/31/24 16:00 05/31/24 16:30
MDM/Problems Addressed
Differential Diagnosis Includes:
Patient describing fall. Nothing that would indicate syncope or other etiology. No significant trauma clinically. She does have some mild tenderness to the right lower leg which will be x-rayed. She has some ecchymosis to the left foot although
patient states this is old. Labs have been checked prior to my evaluation. She has a mild bandemia but is not describing any infectious symptoms
*Radiology
Radiology exam reviewed: radiology read reviewed (Incidental gallstones. Negative x-ray)
*Pulse Oximetry
Patient hypoxic: no
*EKG
Interpreted by ED Provider?: Yes
Interpretation: abnormal
Comparison EKG: changes noted
Heart Rate: 96
Rate: normal
Rhythm: sinus and PVC's
[place]: normal axis
Interval: normal interval
QRS Pattern: left vent hypertrophy
Ischemia: non-specific ST changes
*Critical Care Note
Total Time (30-74mins, 75-104mins- exclusive of procedures): Not Applicable
Data Reviewed
Review of Other/Old Records Reveals: Labs, Records and Testing
Update Note
Update Note:
Lengthy discussion with the patient and son. She ambulated reasonably well on her own. I did discuss whether she feels safe living alone and requires a higher level of care. Son also has the same concerns but patient is fully awake alert and
oriented absolutely refusing any higher level of care. She states she is fine by herself. Again she is fully awake and alert. She does have a mild elevation in LFTs. She has gallstones but she has no right upper quadrant tenderness and nothing
to support acute cholecystitis. No other infectious findings found. Stable for discharge
ED Attending Note
-
Portions of this chart may have been created with voice recognition software.� Occasional wrong word or��sound alike� substitutions may have occurred due to the inherent limitations of voice recognition software.
Discharge Plan
Departure
Patient Disposition: Home (Routine Discharge)
Date of Disposition: 05/31/24
Time of Disposition: 17:02
Patient with high blood pressure during this ER visit?: No
Discharge Problem:
Fall, Multiple contusions, Incidental gallstones, Elevated transaminase
Instructions: Contusion (DC), Preventing falls in adults
Prescriptions:
No Action
lamotrigine 150 MG tablet
300 mg PO BID
diltiazem HCl 240 MG capsule,extended release 24hr
240 mg PO DAILY
omeprazole 20 MG capsule,delayed release(DR/EC)
20 mg PO DAILY
aripiprazole 10 MG tablet
10 mg PO DAILY
duloxetine 30 MG capsule,delayed release(DR/EC)
90 mg PO DAILY
celecoxib 100 mg capsule
100 mg PO DAILY
inulin 1.5 gram Tablet,Chewable
3 g PO DAILY
Hair, Skin and Nails (biotin) 10,000 mcg Tablet,Chewable
10,000 mcg PO DAILY Qty: 0
simvastatin [Zocor] 20 mg Tablet
20 mg PO HS
acyclovir 200 mg Capsule
200 mg PO BID
gabapentin 100 mg Capsule
100 mg PO TID
loperamide 2 mg Capsule
2 mg PO Q6HPRN PRN (Reason: diarrhea) Qty: 30 0RF
metoprolol succinate 50 mg Tablet Extended Release 24 Hr
50 mg PO BID Qty: 60 0RF
metronidazole 500 mg Tablet
500 mg PO TID Qty: 15 0RF
Lactobac/Bifidobac [Visbiome]
1 cap PO DAILY Qty: 30 0RF
Referrals:
Malika Alexander MD [Family Provider] - Follow up in 2-3 days
Activity Restrictions/Additional Instructions:
Your liver enzymes are mildly elevated. This is a nonspecific finding.
Please return with any abdominal pain fever nausea vomiting or any other concerning symptoms.
Also if you do not feel safe living alone independently, please seek higher level of care or return to the ER for further evaluation
Interventions
Interventions:
*Risk Screen - Suicide Last Done: 05/31/24 12:34
*General Assessment Last Done: 05/31/24 12:34
*Neglect/Abuse Screening Last Done: 05/31/24 12:34
*ED- Fall Risk Assessment Last Done: 05/31/24 18:20
*ED COVID-19 Vaccine History Last Done: 05/31/24 12:39
*Nursing Disposition Last Done: 05/31/24 18:20
ED-Musculoskeletal Assessment Last Done: 05/31/24 13:30
ED- Neurological Assessment Last Done: 05/31/24 13:20
ED-Skin Assessment Last Done: 05/31/24 13:30
Discharge Date and Time
Discharge Date/Time: 05/31/24 18:20
Print Language: SOUTH AFRICAN
[2024-05-31 16:00] LABS: Urine Albumin 1+ (Neg - Trace); Urine Bilirubin Negative (Negative); Urine Character Clear (Clear); Urine Color Yellow; Urine Glucose Negative (Negative); Urine Ketone Negative (Negative); Urine Leukocyte Negative (Negative); Urine Nitrite Negative (Negative); Urine Occult Blood 1+ (Negative); Urine Specific Gravity 1.015 (<1.030); Urine Urobilinogen 2+ (Neg - 1+)
[2024-05-31 16:10] LABS: Urine Squamous Cell 0-2 /LPF (Few)
[2024-05-31 16:16] LABS: Urine Bacteria Few (Negative); Urine White Cell 0-2 /HPF (0-5)
== END 2024-05-31 18:20 | disposition home or self-care (01) ==
LOC: EMR 12:24
PROVIDERS: Emergency Medicine; EMERGENCY PHYSICIAN Emergency Medicine; FAMILY PHYSICIAN Internal Medicine Geriatric Medicine
DX: S80.02XA Contusion of left knee, initial encounter (principal); S80.01XA Contusion of right knee, initial encounter; R74.01 Elevation of levels of liver transaminase levels; K80.20 Calculus of gallbladder without cholecystitis without obstruction; W06.XXXA Fall from bed, initial encounter; F17.200 Nicotine dependence, unspecified, uncomplicated
CPT/HCPCS: 99285; 73502; 73564; 76700; 80053; 81003; 81015; 85025; 93005

== ENCOUNTER 2024-06-26 16:59 | Inpatient (IN) | payer OTHER, SELFPAY ==
[2024-06-26] VITALS (7 sets, daily range): BP systolic 114–129; BP diastolic 54–71; BMI 36.1; BMI 36.3
--- NOTE | 2024-06-26 10:33 | ED.GENMED ---
History of Present Illness
General
Chief Complaint: Skin Problem
Source: patient and ambulance crew
Exam Limitations: none
Time Seen by Provider: 06/26/24 10:22
History of Present Illness
History of Present Illness:
84yoF with a history of hypertension, hyperlipidemia, [employer] shunt, bipolar disorder, and prior right knee replacement presenting via EMS for evaluation of a right leg infection. Patient is a resident at [facility]. She reports developing pain and
redness to her right leg about 10 days ago. She was started on antibiotics yesterday and received 1 dose of oral Keflex as well as 2 doses of 1 g IV Ancef. She was sent to the ED for failure of outpatient antibiotics. Patient denies any fevers,
chills, or body aches.
Past History
Past History
ED Past Medical History: Cancer, HTN, Seizures, Psychiatric and Other (SDH)
ED Past Surgical History: Appendectomy, Brain (VPS shunt), Gynecological, Orthopedic and Urological
Social History
Tobacco: Smoker
Alcohol: None
Drug: None
Living: with family
Employment: Retired
Family History
Family History: Hypertension
Phy Exam
General Physical Exam
General Presentation: well appearing and no apparent distress
General age: appears stated age
General Skin: warm and dry
General Habitus: normal
General Mental: alert
ENT Exam
ENT Exam: normocephalic
Pulmonary Exam
Pulmonary Exam: no respiratory distress
Neurological Exam
Neurological Exam: alert
Ilya Coma Scale
Eye Opening: Spontaneous
Verbal Response: Oriented
Motor Response: Obeys Commands
GCS Total Score: 15
Musculoskeletal Exam
Musculoskeletal Exam: other (There is erythema and warmth along the lateral aspect of the R lower leg. +Area of fluctuance, swelling, and tenderness to the lateral aspect of the knee. ROM decreased. 2+ DP pulse. )
Skin Exam
Skin Exam: warm/dry
Course
Orders/Labs/Results
Orders:
Orders
06/26/24 06:08
Ferritin Urgent
Comment: ADD ON
Folate Urgent
Comment: ADD ON
Vitamin B12 Urgent
Comment: ADD ON
06/26/24 10:32
CT Lower Ext W/iv Cont Rt Urgent
Comment:
Reason For Exam: R knee/calf swelling and redness
Venous Doppler Lwr Ext Rt [US Periph Venous LOWER Ext RT] Urgent
Comment:
Reason For Exam: R leg swelling, redness
06/26/24 10:36
C-Reactive Protein Urgent
Comment: ESR & CRP ADDED ON BY FLOOR 1:50PM 06-26-24
Complete Blood Count/With Diff Urgent
Comprehensive Metabolic Panel Urgent
Erythrocyte Sed Rate Urgent
Lactate Level [Lactic Acid] Urgent
06/26/24 13:50
Add On- LAB Urgent
Tests Added?: ESR, CRP
06/26/24 13:51
ORTHOPEDIC CONSULT Urgent
Consulting Provider: Prosper Mujica
Was physician already notified: Yes
06/26/24 14:24
CR Knee- Right 4 Or More View* Urgent
Comment:
Reason For Exam: pain, swelling
06/26/24 15:24
Body Fluid Cell Count Routine
What is the Body Fluid: Right Knee Aspirate
Date Specimen was Collected: 06/26/24
Time Specimen was Collected: 15:22
Body Fluid Crystals Routine
What is the Body Fluid: Right Knee Aspirate
Date Specimen was Collected: 06/26/24
Time Specimen was Collected: 15:22
Anaerobic Culture Routine
RADHA Source: KN
Specimen Description: RT
Date Specimen was Collected: 06/26/24
Time Specimen was Collected: 15:22
Comment: Add on by Jairo Moreno PA-C
Fluid Culture with Gram Stain Routine
RADHA Source: Knee
Specimen Description: Right
Date Specimen was Collected: 06/26/24
Time Specimen was Collected: 15:22
06/26/24 15:27
CefTRIAXone [Rocephin] 2,000 mg IV NOW STA
Vancomycin [Vancocin] 2,000 mg 0.9% Sodium Chloride 500 ml [Nss] 500 ml IV NOW
06/26/24 15:32
Add On - Microbiology Routine
Comments:: Lateral Aspect Right Knee Aspirate
Tests Added?: Anaerobic Culture
06/26/24 16:08
Add On- LAB Urgent
Tests Added?: folate, ferritin tibc, b12
Iron Urgent
Total Iron Binding Urgent
Comment: ADD ON
Abnormal Lab Results
06/26/24
10:36
WBC 12.4 H 10^3/uL
(4.8-10.8)
RBC 3.43 L 10^6/uL
(4.20-5.40)
Hgb 9.5 L g/dL
(12.0-16.0)
Hct 28.8 L %
(37.0-47.0)
Abs Immat Gran (auto) 0.1 H 10^3/uL
(0-0.05)
Absolute Neuts (auto) 9.8 H 10^3/uL
(1.4-6.5)
Absolute Monos (auto) 0.7 H 10^3/uL
(0.1-0.6)
Immature Gran % 0.6 H %
(0-0.5)
Neutrophils % 79.4 H %
(42.2-75.2)
Lymphocytes % 11.3 L %
(20.5-51.1)
ESR 126 H mm/hour
(0-20)
Glucose 124 H mg/dl
(70-99)
C-Reactive Protein > 270.00 H mg/L
(0.0-10.00)
Albumin 3.0 L g/dl
(3.5-5.0)
06/26/24 10:36
06/26/24 10:36
Vital Signs
Initial and Last Documented VS:
Initial Vital Signs
Temp Pulse Resp BP Pulse Ox
99.0 F 99 16 123/61 92
06/26/24 10:24 06/26/24 10:24 06/26/24 10:24 06/26/24 10:24 06/26/24 10:24
Last Documented Vital Signs
Temp Pulse Resp BP Pulse Ox
99.0 F 61 16 126/54 92
06/26/24 10:24 06/26/24 14:00 06/26/24 14:00 06/26/24 14:00 06/26/24 14:00
MDM/Problems Addressed
Differential Diagnosis Includes:
84yoF here with R leg pain/redness x 10 days. Started on IV Ancef by nursing facility yesterday without improvement so sent to the ED. No f/c. VSS. There is evidence of cellulitis on exam as well as an area of fluctuance to the lateral aspect of the
knee. RLE is neurovascularly intact. Differential diagnosis includes but is not limited to: Cellulitis, abscess, septic arthritis, doubt NSTI
Initial ED plan: Check CBC, CMP, lactate, venous duplex, and lower extremity CT.
*Critical Care Note
Total Time (30-74mins, 75-104mins- exclusive of procedures): Not Applicable
Update Note
Update Note:
Labs reveal a white count of 12.4, lactate is normal. CT shows findings concerning for septic arthritis of the knee joint with a 3.7 cm fluid collection in the lateral subcutaneous soft tissues which most likely communicates with the joint
effusion. Orthopedics consulted. Dr. Moncada performed aspiration at bedside and fluid sent to lab for analysis. IV Rocephin and vancomycin ordered. Patient admitted for further evaluation and management.
ED Attending Note
-
Portions of this chart may have been created with voice recognition software.� Occasional wrong word or��sound alike� substitutions may have occurred due to the inherent limitations of voice recognition software.
Discharge Plan
Departure
Patient Disposition: Admit
Date of Disposition: 06/26/24
Time of Disposition: 15:30
Presentation/result/management discussed w/ accepting MD/DO: Hospitalist
Discharge Problem:
Infection of right knee, Cellulitis of right lower extremity
Prescriptions:
No Action
diltiazem HCl 240 MG capsule,extended release 24hr
240 mg PO DAILY
aripiprazole 10 MG tablet
10 mg PO DAILY
duloxetine 30 MG capsule,delayed release(DR/EC)
60 mg PO DAILY
celecoxib 100 mg capsule
100 mg PO DAILY
simvastatin [Zocor] 20 mg Tablet
20 mg PO HS
acyclovir 200 mg Capsule
200 mg PO BID
gabapentin 100 mg Capsule
100 mg PO TID
cefazolin 1 gram Recon Soln
1 g IV Q8H
lidocaine 4 % Adhesive Patch,Medicated
1 patch TOPICAL DAILY
clopidogrel 75 mg Tablet
75 mg PO DAILY
acetaminophen 500 mg Tablet
1,000 mg PO TID
bismuth subsalicylate [Kaopectate (bismuth subsalicy)] 262 mg/15 mL Suspension
524 mg PO Q4HPRN PRN (Reason: loose stool)
aspirin 81 mg Tablet,Chewable
81 mg PO DAILY
dextroamphetamine-amphetamine [Adderall XR] 10 mg Capsule,Extended Release 24hr
10 mg PO DAILY
omeprazole 20 mg Tablet,Delayed Release (Dr/Ec)
20 mg PO DAILY
lamotrigine 300 mg Tablet Extended Release 24hr
300 mg PO BID
metoprolol succinate 50 mg tablet extended release 24 hr
50 mg PO DAILY
Referrals:
Malika Alexander MD [Family Provider] -
Interventions
Interventions:
*Risk Screen - Suicide Last Done: 06/26/24 10:24
*General Assessment Last Done: 06/26/24 10:24
*Neglect/Abuse Screening Last Done: 06/26/24 10:24
*ED- Fall Risk Assessment Last Done: 06/26/24 10:54
*ED COVID-19 Vaccine History Last Done: 06/26/24 10:54
ED-Skin Assessment Last Done: 06/26/24 10:52
Discharge Date and Time
Print Language: [place]
[2024-06-26 10:46] LABS: % Basophils 0.4 % (0-2); % Eosinophils 2.6 % (0-6); % Immature Granulocytes 0.6 % (0-0.5); % Lymphocytes 11.3 % (20.5-51.1); % Monocytes 5.7 % (1.7-9.3); % Neutrophils 79.4 % (42.2-75.2); Absolute Basophils 0.1 10^3/uL (0-0.2); Absolute Eosinophils 0.3 10^3/uL (0-0.7); Absolute Immature Granulocytes 0.1 10^3/uL (0-0.05); Absolute Lymphocytes 1.4 10^3/uL (1.2-3.4); Absolute Monocytes 0.7 10^3/uL (0.1-0.6); Absolute Neutrophils 9.8 10^3/uL (1.4-6.5); Hematocrit 28.8 % (37.0-47.0); Hemoglobin 9.5 g/dL (12.0-16.0); Mean Corpuscular Hgb 27.7 pg (27.0-31.0); Mean Platelet Volume 8.4 fL (7.4-10.4); Nucleated Red Blood Cells % 0 %; Platelet Count 323 10^3/uL (130-400); Red Blood Cell Count 3.43 10^6/uL (4.20-5.40); White Blood Cell Count 12.4 10^3/uL (4.8-10.8)
[2024-06-26 11:13] LABS: Lactic Acid 1.5 mmol/L (0.7-2.0)
[2024-06-26 11:15] LABS: ALT (SGPT) 15 U/L (0-35); AST (SGOT) 18 U/L (14-36); Alkaline Phosphatase 120 U/L (38-126); Blood Urea Nitrogen 12 mg/dl (7-17); Calcium 8.7 mg/dl (8.4-10.2); Carbon Dioxide 28 mmol/L (22-30); Chloride 104 mmol/L (98-107); Estimated Creatinine Clearance 78 ml/min; Glucose 124 mg/dl (70-99); Sodium 141 mmol/L (135-145); Total Bilirubin 0.4 mg/dl (0.2-1.3); Total Protein 6.5 g/dl (6.3-8.2); eGFR > 60.00
[2024-06-26 14:12] LABS: Erythrocyte Sed Rate 126 mm/hour (0-20)
[2024-06-26] MEDS: ROCEPHIN 2000 MG IV (15:47)
[2024-06-26 15:55] LABS: C-Reactive Protein > 270.00 mg/L (0.0-10.00)
[2024-06-26 15:59] LABS: Body Fluid Mononuclear 5.6 %; Body Fluid Polymorphonuclear 94.4 %; Body Fluid WBC 121420 /CUMM
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
[2024-06-26 16:18] LABS: Body Fluid Second Tech DW
--- NOTE | 2024-06-26 16:41 | W.PN.UPDATE ---
Update Note
Progress Note Update
This is an addendum to H&P written by Danielle Bennett on 06/26/2024.� Patient seen and examined independently with MANAGER OF ENGINEERING.
84-year-old female past medical history of right knee replacement unknown time,�bilateral blindness, normal pressure hydrocephalus status post [place] [employer] shunt, seizure disorder, hypertension, bipolar, anxiety, hyperlipidemia presenting for right leg pain
and redness for 10 days.� Started on antibiotics yesterday.� No fevers or chills.
Vital signs normal.
Labs show leukocytosis.
CT scan of the right lower extremity shows small knee joint effusion, small low-attenuation foci within the effusion questionable foci of gas.� Patient with 3.7 cm fluid collection within the lateral subcutaneous soft tissues suspicious for septic
arthritis.
Orthopedics consulted and performed IR aspiration of fluid culture.� Vancomycin/ceftriaxone started.� ID consulted.
[2024-06-26] MEDS: VANCOCIN 540 MG IV (17:20)
--- NOTE | 2024-06-26 20:01 | PHA.VAN.IN ---
Assessment
- Assessment
Renal Function: Appears similar to baseline
Concomitant Antimicrobials: ROCEPHIN
- Previous Dosing Experience
Previous Regimen: NONE
AUC Dosing Plan
- Dosing Variables
Dosing Weight (kg): 92.3
Dosing CrCl (ml/min): 78
Vd coefficient (L/kg): 0.6
- Empiric Dosing
Initial / Loading Dose: 2GM
Maintenance Regimen: 1GM IV Q12H
Estimated AUC (mcg*h/mL): 540
Estimated Peak (mcg*h/mL): 32
Estimated Trough (mcg/ml): 15
Estimated Half Life (H): 10
Pharmacokinetics Vancomycin I
- -
Patient Age: 84
Patient Sex: Female
Vancomycin Day #: 1
Indication: Bone And Joint
Requesting Provider: VIKAS
Height / Weight:
Height 5 ft 3 in
Actual Weight 92.3 kg
- Vital Signs / Lab Results
Temp Pulse Resp BP Pulse Ox
99.0 F 78 16 129/68 91
06/26/24 10:24 06/26/24 18:00 06/26/24 18:00 06/26/24 18:00 06/26/24 18:00
Lab Results - Hematology
06/26/24
10:36
WBC 12.4 H
Lab Results - Chemistry
06/26/24
10:36
BUN 12
Creatinine 0.6
Estimated Creat Clear 78
Albumin 3.0 L
06/26/24
10:36
Lactic Acid 1.5
Microbiology Results
06/26/24 15:24 Gram Stain - Preliminary
Knee - Right
--- NOTE | 2024-06-26 20:34 | W.PN.UPDATE ---
Update Note
Progress Note Update
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
replacement who presented to [facility] Emergency Department from [facility] via EMS for evaluation of right knee infection.
Patient was seen and evaluated in ED with Dr. Moncada. She underwent aspiration of right knee yielding approximately 15 cc of pus. Fluid analysis thus far has revealed a fluid WBC of 121,420, 94.4% PMNs, negative crystals, Gram stain revealing many
WBCs without any organisms seen, and fluid culture currently pending.
[facility] was initially consulted, however it was discovered that Dr. Corby Lala MD ([facility]) performed her right total knee replacement. This was discussed with on-call Orthopedic physician Dr. Mujica, who further
discussed with Dr. Kvng Corbett. Dr. Corbett has affirmed that he will take over patient care.
Patient as well as her son (Hilton BRENNER; [phone]) were notified. All questions were answered. Primary team was also notified.
BCOS will sign off on this patient at this time.
--- NOTE | 2024-06-26 21:06 | W.PN.UPDATE ---
Update Note
Progress Note Update
Received an update from [facility] orthopedic PA that arthrocentesis culture highly suggestive of septic arthritis. As per patient she states that she had right knee replacement 25 years ago however the imaging is suggestive of right knee
replacement that was more recent. Orthopedics was not able to reach POA or patient's son.
Orthopedic PA spoke with Dr. Mujica who was considering revision right knee arthroplasty versus transfer to tertiary care center. After further discussion however care is being transitioned to Dr. Corbett of [facility].
Patient does not have any cardiac medical history. Patient does not have any chest pain or shortness of breath. Patient would be able to proceed to any orthopedic surgery. N.p.o. past midnight.
[2024-06-26] MEDS: HEPARIN 5000 UNITS SC (21:18)
[2024-06-26] MEDS: LIPITOR 10 MG PO (21:18)
[2024-06-26] MEDS: TYLENOL 1000 MG PO (21:18)
[2024-06-26] MEDS: NEURONTIN 100 MG PO (21:18)
[2024-06-26] MEDS: ZOVIRAX 200 MG PO (21:19)
[2024-06-26] MEDS: PROTONIX 40 MG PO (22:25)
[2024-06-27] MEDS: STERILE WATER FOR INJECTION 20 ML IV ×2 (04:56→16:19)
[2024-06-27] MEDS: ROCEPHIN 2000 MG IV ×2 (04:56→16:19)
[2024-06-27] MEDS: VANCOCIN 200 IV ×2 (05:36→17:13)
[2024-06-27 05:53] LABS: % Basophils 0.4 % (0-2); % Eosinophils 4.7 % (0-6); % Immature Granulocytes 0.5 % (0-0.5); % Lymphocytes 18.6 % (20.5-51.1); % Neutrophils 69.8 % (42.2-75.2); Absolute Eosinophils 0.4 10^3/uL (0-0.7); Absolute Immature Granulocytes 0.1 10^3/uL (0-0.05); Absolute Lymphocytes 1.8 10^3/uL (1.2-3.4); Absolute Monocytes 0.6 10^3/uL (0.1-0.6); Absolute Neutrophils 6.6 10^3/uL (1.4-6.5); Hematocrit 29.7 % (37.0-47.0); Hemoglobin 9.4 g/dL (12.0-16.0); Mean Corp Hgb Conc. 31.6 g/dL (33.0-37.0); Mean Corpuscular Hgb 27.2 pg (27.0-31.0); Mean Corpuscular Volume 85.8 fL (81.0-99.0); Nucleated Red Blood Cells % 0 %; Platelet Count 334 10^3/uL (130-400); Red Blood Cell Count 3.46 10^6/uL (4.20-5.40); White Blood Cell Count 9.4 10^3/uL (4.8-10.8)
[2024-06-27 06:09] LABS: ALT (SGPT) 14 U/L (0-35); AST (SGOT) 17 U/L (14-36); Albumin 2.9 g/dl (3.5-5.0); Alkaline Phosphatase 117 U/L (38-126); Blood Urea Nitrogen 10 mg/dl (7-17); Calcium 8.9 mg/dl (8.4-10.2); Carbon Dioxide 28 mmol/L (22-30); Chloride 106 mmol/L (98-107); Estimated Creatinine Clearance 75 ml/min; Glucose 94 mg/dl (70-99); Iron 36 ug/dl (37-170); Sodium 144 mmol/L (135-145); Total Bilirubin 0.4 mg/dl (0.2-1.3); Total Protein 6.4 g/dl (6.3-8.2); eGFR > 60.00
[2024-06-27 06:19] LABS: Percent Saturation 20 % (20-50); Total Iron Binding Capacity 178 ug/dl (265-497)
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
[2024-06-27 07:15] VITALS: BP 137/73
[2024-06-27 07:28] LABS: Vitamin B12 473 pg/ml (239-931)
--- NOTE | 2024-06-27 07:47 | PHA.VAN.FU ---
Vancomycin Assessment / Plan
- Assessment
Renal Function: Stable
WBC's are: Trending Down
In the past 24 hrs, patient has been: Afebrile
Concomitant Antimicrobials: ceftriaxone
- Dosing Plan
Continue: 1000mg q12h
- Monitoring Plan
Peak Level: 06/28 @2030
Trough Level: 06/29 @0530
- Follow Up
Pharmacy will continue to follow.
Vancomycin Follow UP
- -
Patient Age: 84
Patient Sex: Female
Vancomycin Day #: 2
Indication: Bone And Joint
Requesting Provider: VIKAS
Height / Weight:
Height 5 ft 2 in
Actual Weight 90.01 kg
- Vital Signs / Lab Results
Temp Pulse Resp BP Pulse Ox
98.3 F 84 16 119/61 95
06/26/24 23:39 06/26/24 23:39 06/26/24 23:39 06/26/24 23:39 06/26/24 23:39
Lab Results - Hematology
06/26/24 06/27/24
10:36 04:35
WBC 12.4 H 9.4
Lab Results - Chemistry
06/26/24 06/27/24
10:36 04:35
BUN 12 10
Creatinine 0.6 0.6
Estimated Creat Clear 78 75
Albumin 3.0 L 2.9 L
06/26/24
10:36
Lactic Acid 1.5
Microbiology Results
06/26/24 15:24 Gram Stain - Preliminary
Knee - Right
--- NOTE | 2024-06-27 09:09 | CON.ORTHO ---
Consultation - Orthopedics
History
HPI: 84-year-old female presented to the emergency department complaints of right knee pain swelling and redness. Concern for of her prosthetic joint infection she underwent aspiration of the joint in the emergency department which yielded synovial
white blood cell count concerning for PJI. She is admitted to the hospitalist service. There was some confusion regarding who her index surgeon was. Ultimately was determined that Dr. Corby clayton performed her total knee arthroplasty about 2
years ago. Orthopedics was consulted for further evaluation and treatment. This morning patient is mildly confused but does report pain recently that is worsened will localize the right knee. She reports that she lives in [facility].
Reportedly this had been worsening over the last 10 days and she was actually started antibiotics about 2 days ago. She reports that she typically ambulates when outside of her apartment with a motor scooter. Denies any fevers or chills at home.
Allergies / Home Medications
Past medical history: Hypertension, bipolar disorder, HRIS MANAGER shunt, hypertension, hyperlipidemia, seizure disorder
Past surgical history: Appendectomy, HRIS MANAGER shunt, ankle surgery, bilateral knee total arthroplasty, total shoulder arthroplasty
Family history: Not pertinent
Social history: Former smoker, lives at [facility]
Allergy/AdvReac Type Severity Reaction Status Date / Time
No Known Allergies Allergy Verified 03/27/24 15:17
�Medication �Instructions �Recorded
diltiazem HCl 240 mg 240 mg PO DAILY Blood pressure 06/20/20
capsule,extended release 24 hr
aripiprazole 10 mg tablet 10 mg PO DAILY Mental 06/28/20
Health/Anxiety
duloxetine 30 mg capsule,delayed 60 mg PO DAILY Depression 06/28/20
release
celecoxib 100 mg capsule 100 mg PO DAILY Pain 05/21/23
acyclovir 200 mg capsule 200 mg PO BID 02/19/24
gabapentin 100 mg capsule 100 mg PO TID 02/19/24
simvastatin 20 mg tablet (Zocor) 20 mg PO HS 02/19/24
acetaminophen 500 mg tablet 1,000 mg PO TID 06/26/24
aspirin 81 mg chewable tablet 81 mg PO DAILY 06/26/24
bismuth subsalicylate 262 mg/15 mL 524 mg PO Q4HPRN PRN loose stool 06/26/24
oral suspension (Kaopectate
(bismuth subsalicylate))
cefazolin 1 gram solution for 1 g IV Q8H 06/26/24
injection
clopidogrel 75 mg tablet 75 mg PO DAILY 06/26/24
dextroamphetamine-amphetamine ER 10 mg PO DAILY 06/26/24
10 mg 24hr capsule,extend release
(Adderall XR)
lamotrigine 300 mg tablet,extended 300 mg PO BID 06/26/24
release 24 hr
lidocaine 4 % topical patch 1 patch topical DAILY R knee 06/26/24
metoprolol succinate 50 mg 50 mg PO DAILY 06/26/24
tablet,extended release 24 hr
omeprazole 20 mg tablet,delayed 20 mg PO DAILY 06/26/24
release
Vital Signs / Lab Results
Temp Pulse Resp BP Pulse Ox
98.9 F 96 18 137/73 94
06/27/24 07:15 06/27/24 07:15 06/27/24 07:15 06/27/24 07:15 06/27/24 07:15
06/27/24 04:35
06/27/24 04:35
10 point review systems reviewed and negative unless otherwise stated
General: Pleasant, no acute distress, mildly confused
Musculoskeletal right lower extremity
Palpable warmth over right knee, mild erythema noted right knee, palpable effusion and palpable fluctuance noted over anterior lateral knee
Patient is able to strongly straight leg raise, flex knee only to about 60 degrees limited by pain
Diffuse tenderness palpation about the knee
Unable to tolerate ligamentous evaluation
No gross motor or sensory deficits distally
Diagnostic studies
X-rays and CT scan right knee reviewed notable small effusion as well as fluid collection noted lateral subcutaneous tissues. Radiologist notes this likely communicates with the joint effusion. X-rays reveal healed proximal fibula fracture. No
gross subsidence of arthroplasty components
Aspiration right knee with synovial fluid white blood cell count of 121,420 94.4% PMN, no crystals, Gram stain no organisms seen, cultures pending
ESR 126, CRP pending
Assessment / Plan
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 I did have a long discussion with the patient regarding diagnosis and treatment
options. Explained to her that this would likely require surgical intervention. she asked me to reach out to her son. Plan to discuss further with him. I will plan to reach out to the patient's index surgeon Dr. Corby clayton to discuss definitive
treatment options. This would likely involve transfer to another facility where he has privileges to perform definitive surgery. Patient is currently well-appearing. Would recommend knee immobilizer for soft tissue mobilization right knee while
in bed. No plans for surgical intervention today. Please reach out with questions or concerns. Will update once definitive plan is determined.
[2024-06-27] MEDS: PROTONIX 40 MG PO (09:15)
[2024-06-27] MEDS: CARDIZEM CD 240 MG PO (09:15)
[2024-06-27] MEDS: CYMBALTA DELAYED RELEASE 60 MG PO (09:15)
[2024-06-27] MEDS: TYLENOL 1000 MG PO ×2 (09:16→16:19)
[2024-06-27] MEDS: LOW STRENGTH ASPIRIN 81 MG PO (09:16)
[2024-06-27] MEDS: TOPROL XL 50 MG PO (09:16)
[2024-06-27] MEDS: PLAVIX 75 MG PO (09:16)
[2024-06-27] MEDS: ZOVIRAX 200 MG PO ×2 (09:16→19:46)
[2024-06-27] MEDS: CELEBREX 100 MG PO (09:16)
[2024-06-27] MEDS: ABILIFY 10 MG PO (09:16)
[2024-06-27] MEDS: NEURONTIN 100 MG PO ×2 (09:16→16:19)
[2024-06-27] MEDS: HEPARIN 5000 UNITS SC ×2 (09:17→19:46)
--- NOTE | 2024-06-27 10:05 | CM ---
CM following re: discharge planning.
Reviewed pt's chart, met with pt.
pt is an 84 year old female, admitted with primary dx of Cellulitis. PMH includes: osteoarthritis bilateral knees, back, spinal stenosis, sleep apnea CPAP noncompliant x 5 months, polyneuropathy hypertension, hyperlipidemia, Chronic short-term
memory impairment.
Pt reports she has been living alone in an independent apartment at [facility] for the past 5 years, has 2 supportive children. Pt reports she ambulates with a walker and Rollator at baseline, has a scooter, was at [facility] in the past
and had [facility] in the past. Pt stated she has been very weak in the past 10 days and pt stated she might need to go to [facility] or a short term rehab.
PT and OT will evaluate the pt to determine a level of care at discharge.
PCP: Malika Alexander
Pharmacy: [facility] pharmacy.
D/C plan: [facility] if recommended by PT and OT.
CM will follow with discharge plan updates as hospitalization progresses
[2024-06-27 10:52] LABS: C-Reactive Protein > 270.00 mg/L (0.0-10.00)
--- NOTE | 2024-06-27 13:43 | W.PN.UPDATE ---
Update Note
Progress Note Update
Was able to get in touch with index surgeon Corby Lala and will plan to facilitate transfer of patient to [facility] for definitive surgical treatment on Saturday. I did discuss likely transfer with patient this morning and did call and leave
a message with the patient's son to update him. Please reach out with any questions or concerns.
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
[2024-06-27 15:00] VITALS: BP 150/71
--- NOTE | 2024-06-27 17:33 | W.DCSUMMARY ---
Discharge Summary
Discharge Data
Date of Admission: 06/26/24
Date of Discharge: 06/27/24
-
Pending Results: Yes
Additional Pending Results:
cultures
Discharge Plan
-
Patient Disposition: Acute [facility]
Discharge Orders:
Discharge Patient (As Directed); Ordered 06/27/24
Ordered By: Stephany Olmos
Discharge Date and Time
Print Language: PERSIAN
--- NOTE | 2024-06-27 17:42 | PTCARENOTE ---
Called [facility] to give report and there was no parts picker at [phone]. supervisor carbon electrodes is at 8pm, will attempt again.
--- NOTE | 2024-06-27 17:52 | PTCARENOTE ---
food service clerk was able to get in touch with the floor and they would not take report at 1750. The person who answered wanted the report to be given after shift change and to the overnight nurse.
[2024-06-27] MEDS: LAMICTAL 300 MG PO (19:45)
[2024-06-27 19:48] VITALS: BP 151/85
--- NOTE | 2024-06-27 20:36 | PTCARENOTE ---
Patient being transferred to [facility]. Report given to MANUEL Ledezma. Patient's IV removed. Vital signs taken and are stable. EMS arrived for pickup.
== END 2024-06-27 20:42 | disposition short-term general hospital (02) | DRG 560 ==
LOC: 4 EAST ACU 16:59
PROVIDERS: Clinical Nurse Specialist Family Health; Physician Assistant; Specialist; Student in an Organized Health Care Education/Training Program; ADMITTING PHYSICIAN Hospitalist; ATTENDING PHYSICIAN Internal Medicine; CONSULT PHYSICIAN Internal Medicine Infectious Disease; EMERGENCY PHYSICIAN Emergency Medicine; FAMILY PHYSICIAN Internal Medicine Geriatric Medicine; OTHER PHYSICIAN Orthopaedic Surgery
PROC: 0S9C3ZX Drainage of Right Knee Joint, Percutaneous Approach, Diagnostic (ICD-10-PCS; 2024-06-26)
DX: T84.53XA Infection and inflammatory reaction due to internal right knee prosthesis, initial encounter (principal); G91.2 (Idiopathic) normal pressure hydrocephalus; L03.115 Cellulitis of right lower limb; I10 Essential (primary) hypertension; G62.9 Polyneuropathy, unspecified; G47.33 Obstructive sleep apnea (adult) (pediatric); D64.9 Anemia, unspecified; E66.812 Obesity, class 2; E78.5 Hyperlipidemia, unspecified; H54.8 Legal blindness, as defined in USA; F31.9 Bipolar disorder, unspecified; G40.909 Epilepsy, unspecified, not intractable, without status epilepticus; F90.9 Attention-deficit hyperactivity disorder, unspecified type; G89.29 Other chronic pain; K21.9 Gastro-esophageal reflux disease without esophagitis; M17.0 Bilateral primary osteoarthritis of knee; M19.011 Primary osteoarthritis, right shoulder; M48.00 Spinal stenosis, site unspecified; M25.461 Effusion, right knee; Y79.2 Prosthetic and other implants, materials and accessory orthopedic devices associated with adverse incidents; Y83.1 Surgical operation with implant of artificial internal device as the cause of abnormal reaction of the patient, or of later complication, without mention of misadventure at the time of the procedure; Z68.36 Body mass index [BMI] 36.0-36.9, adult; Z98.2 Presence of cerebrospinal fluid drainage device; Z96.651 Presence of right artificial knee joint; Z96.611 Presence of right artificial shoulder joint; Z87.820 Personal history of traumatic brain injury; Z79.899 Other long term (current) drug therapy; Z79.82 Long term (current) use of aspirin; Z79.02 Long term (current) use of antithrombotics/antiplatelets; Z87.891 Personal history of nicotine dependence
CPT/HCPCS: 73564; 73701; 80053; 82607; 82728; 82746; 83540; 83550; 83605; 85025; 85652; 86140; 86850; 86900; 86901; 87015; 87070; 87075; 87147; 87186; 87205; 89051; 89060; 93971; 96365; 96366; 96375; 99285; Q9967